=== PATIENT | male | born 1950 | race Caucasian/White ===

== ENCOUNTER 2018-10-29 09:34 | Inpatient (IN) | payer MEDICARE, OTHER ==
[~2018-10-29] VITALS: Ht 165.1 cm; Wt 115.7 kg
[~2018-10-29 09:34] MED LIST: ASPIR 8181 MG PO; ERTAPENEM1 GM IV; GLIPIZIDE 10 MG10 MG PO; HYDROCHLOROTHIA25 M2 PO; LANTUS SUBQ; METFORMIN HCL500 MG PO; NOVOLOG100 UNIT/1 SUBQ; PRINIVIL20 MG PO; ZOCOR20 MG PO; [UNRECOGNIZED DRUG - OTHER] TOP
[2018-10-29 14:58] LABS: HEMATOCRIT 41.8 % (42.0-52.0); HEMOGLOBIN 14.1 gm/dL (14.0-18.0); MCH 33.1 pg (26.0-34.0); MCHC 33.8 g/dL (28.0-37.0); MPV 9.4 fl. (7.2-11.1); RBC 4.27 mil/uL (4.50-6.00); RDW-CV 13.7 % (10.5-14.5); WBC 8.6 thou/uL (4.0-11.0)
[2018-10-29 15:07] LABS: CALCIUM 9.5 mg/dL (8.5-10.1); CREATININE 1.6 mg/dL (0.6-1.3); POTASSIUM 3.9 mmol/L (3.5-5.1)
[2018-10-29 15:11] LABS: ALBUMIN 3.4 g/dL (3.4-5.0); TOTAL BILIRUBIN 0.5 mg/dL (<0.1-1.0); TOTAL PROTEIN 8.1 g/dL (6.4-8.2)
[2018-10-29 15:15] VITALS: BP 129/99
--- NOTE | 2018-10-29 19:04 | NUR ---
PT ARIVED ON UNIT AROUND 1730. A&Ox4. VITALS STABLE. OX 95% ON 1L O2. PICC IN RIGHT UPPER ARM PATENT. NON WEIGHT BEARING ON LEFT LOWER LEG. REGULAR DIET TOLERATED WELL. FALL PRECAUTIONS IN PLACE. CALL LIGHT WITHIN REACH.
[2018-10-29 20:00] VITALS: BP 153/84
--- NOTE | 2018-10-30 07:24 | NUR ---
THIS NURSE ASSUMED CARE OF PT 10/29/18 AT 1930, PT IS ALERT AND ORIENTED X 4, COMPLAINS OF LLE PAIN, RATES IT 4/10, PT IS MEDICATED WITH PO PAIN MEDS THROUGHTOUT THE NIGHT, PT ON 2L SUPPLEMENTAL O2 AND CAP NO THROUGHOUT THE NIGHT MAINTAINS O2 SAT HIGH 90S, AT [address] DACOSTA THAT PTS LLE IS BLEEDING, THIS NURSE REPORTS TO DR CEE THAT THE PATIENT HAS ABOUT 500 ML POOL OF BLOODY DRAINAGE AFTER DOING A STAND AND PIVOT AND BEING PLACED ON THE BSC, PTS DRESSING HAD BEEN REINFORCED AND COMPRESSION DRESSING ADDED AND EXTREMITY ELEVATED DR DACOSTA ORDER ICE TO BE PLACED WELL AND FOR PT TO REMAIN IN THE BED FOR THE REMAINDER OF THIS SHIFT, PTS DRESSSING OBSERVED LATER IN THE SHIFT WITH MINIMAL NEW DRAINAGE NOTED, PT ON BEDPAN THIS MORNING HAS MOD SIZED SOFT STOOL, FALL PRECAUTIONS MAINTAINED
[2018-10-30 08:00] VITALS: BP 150/87
[2018-10-30 08:38] LABS: HEMATOCRIT 39.5 % (42.0-52.0); HEMOGLOBIN 13.3 gm/dL (14.0-18.0); MCH 33.4 pg (26.0-34.0); MCHC 33.8 g/dL (28.0-37.0); MCV 98.7 fL (80.0-100.0); MPV 10.8 fl. (7.2-11.1); NUCLEATED RBCS 0 /100WBC; PLATELET COUNT* 126 thou/uL (150-400); RDW-CV 13.7 % (10.5-14.5); WBC 10.5 thou/uL (4.0-11.0)
[2018-10-30 08:59] LABS: CALCIUM 9.4 mg/dL (8.5-10.1); CREATININE 1.4 mg/dL (0.6-1.3); POTASSIUM 4.3 mmol/L (3.5-5.1)
[2018-10-30 10:06] LABS: ABSOLUTE LYMPHOCYTES 1.6 thou/uL (0.8-5.3); ABSOLUTE MONOCYTES 0.3 thou/uL (0.0-1.2); ABSOLUTE NEUTROPHILS 8.6 thou/uL (1.6-8.1)
[2018-10-30 10:07] LABS: PLATELET ESTIMATE DECREASED
--- NOTE | 2018-10-30 10:52 | EKG ---
[place] [address] ELECTROCARDIOGRAM REPORT Name: RICO JOSHUA Room: [address] ADM IN R.#: [id number] Admission: 10/29/18 Attend Phys: Bee Beavers MD Discharge: Date of : 50 Report #: [id number] THIS REPORT FOR: //name// [facility] Test Date: 2018-10-29 Test Time: 14:48:04 Pat Name: RICO JOSHUA Department: Room: [facility] Gender: M Corporate Learning Consultant: : 1950 Requested By: Kody Worthington Order Number: [id number] Reading MD: Chris Ladd Measurements Intervals [place] Rate: 95 P: 50 OK: 145 QRS: -10 QRSD: 90 T: 123 QT: 332 QTc: 418 Interpretive Statements Sinus rhythm Left atrial enlargement Abnormal T, consider ischemia, lateral leads No previous ECG available for comparison Electronically Signed On 10-30-2018 10:52:10 NURSE EMERGENCY by Chris Ladd [email or web address] <ELECTRONICALLY SIGNED> By: Chris Ladd MD, [facility] 10/30/18 1052 1448 1448 Chris Ladd MD, FACC /EPI
--- NOTE | 2018-10-30 14:36 | NUR ---
WOUND CARE NOTE: WAS ASKED TO REDRESS PATIENT'S INCISION/ULCERATION PER PODIATRY. PATIENT IS S/P AMPUTATION OF LEFT 5TH TOE. INCISION LINE WELL APPROXIMATED WITH SUTURES IN PLACE. ON THE PLANTAR SURFACE THERE IS AN ULCERATION APPROXIMATELY 0.5X0.5 THAT IS FAIRLY DEEP. REMOVED PACKING AND DARK SANGUINEOUS DRAINAGE EMERGED. THIS CONTINUED TO OOZE THROUGHOUT MY ASSESSMENT. CLEANSED INCISION LINE AND ULCERATION WITH WOUND CLEANSER, PATTED DRY. APPLIED AQUACEL AG TO INCISION LINE. PACKED ULCERATION WITH AQUACEL AG AND COVERED ALL WITH ABD. SECURED WITH KERLIX THAN ADELSO WRAP. PATIENT TOLERATED DRESSING CHANGE WELL. PATIENT STATES HE HAS A KNEE WALKER. EDUCATED PATIENT ON GOOD NUTRTION FOR WOUND HEALING, COMMUNICATED UNDERSTANDING. PATIENT STATES HE HAS LOST WEIGHT AND BEEN ABLE TO GET HIS A1C DOWN TO JUST OVER 5. RECOMMEND NON-WEIGHT BEARING TO LEFT FOOT ENCOURAGE GOOD NUTRTION/HYDRATION TIGHT BLOOD GLUCOSE CONTROL
--- NOTE | 2018-10-30 15:30 | CON ---
[address] [address] CONSULTATION Name: RICO JOSHUA Room: [address] IN M.R.#: [id number] Admission: 10/29/18 Attend Phys: Bee Beavers MD Discharge: Date of : 50 Report #: [id number] THIS REPORT FOR: //name// CC: Kody Beavers Physician staff LUBNA LEAL DATE OF SERVICE: 10/30/2018 ATTENDING PHYSICIAN: Dr. Beavers. REASON FOR EVALUATION: Osteomyelitis involving the left fifth metatarsal. HISTORY OF PRESENT ILLNESS: Chart reviewed, patient examined. This is a 68-year-old gentleman with diabetes mellitus type 2 diagnosed roughly 10 years ago. Does have a complication of peripheral neuropathy, who developed a bullous type lesion as a result of shearing left lower extremity. This eventually denuded some months ago and developed ulcers. He has been followed various times, has had cultures initially with VRE. He has been on broad-spectrum antimicrobials including parenteral therapy initially with ampicillin now more recently for the last 4 weeks with ertapenem. Serial imaging initially suggested noninvolvement of any bone more recently; however, MRI raised a question of osteomyelitis involving the fifth metatarsal due to lack of response to the wound care and parenteral therapy. Was subsequently admitted and underwent resection of the left distal fifth metatarsal and fifth toe skin flap. There were 2 cultures, one of the tissue of the bone that are pending. Empirically continued on meropenem. He is not overtly toxic. Denies any significant pulmonary or gastrointestinal related complaints. He notes his hemoglobin A1c is much improved in 5-6 range. Denies anorexia. Weight is actually down purposefully. He is not encephalopathic. ALLERGIES: TO TANZEUM AND BYDUREON. CURRENT MEDICATIONS: Include aspirin, atorvastatin, insulin, lisinopril, glipizide, pantoprazole, meropenem, hydrochlorothiazide, metformin, hydrocodone, p.r.n. analgesics. PAST MEDICAL HISTORY: Diabetes mellitus type 2, complicated by some peripheral neuropathy; history of hypertension; hyperlipidemia; fatty liver; previous vasectomy. SOCIAL HISTORY: Nonsmoker, no ethanol, no illicit drug use. FAMILY HISTORY: [place] [address] CONSULTATION Name: RICO JOSHUA Room: [address] IN [facility]#: [id number] Admission: 10/29/18 Attend Phys: Bee Beavers MD Discharge: Date of : 50 Report #: [id number] REVIEW OF SYSTEMS: Review of 10-point review of systems is otherwise unremarkable with the exception of the above noted in the history of present illness. PHYSICAL EXAMINATION: GENERAL: He is alert, cooperative, appropriate. He is lucid in mild distress. VITAL SIGNS: Temperature 97.9, pulse 81, respirations 16, blood pressure 150/87. SKIN: Warm, dry. No rashes. HEENT: Otherwise, unremarkable. Extraocular muscles intact. Oropharynx without lesion. NECK: Supple. LUNGS: Clear to auscultation. HEART: Regular. I do not appreciate any murmur. ABDOMEN: Soft, nontender. EXTREMITIES: Distal left lower extremity has operative dressing in place. GENITOURINARY: Deferred. RECTAL: Deferred. LABORATORY DATA: CBC: White count of 10.5, H and H 13.3 and 39.5, platelets of 126. Electrolytes: Sodium 137, potassium 4.3, chloride 102, bicarbonate is 26, BUN and creatinine 26 and 1.4. Estimated GFR of 50 in view of operative report. Liver functions otherwise unremarkable. Albumin of 3.4. Total protein is 8.1. ASSESSMENT AND PLAN: Suspected osteomyelitis involving the left distal fifth metatarsal, status post resection. We will continue treatment with the carbapenem, which he had been on previously. We will await those culture results as well as the pathology. He does have a PICC line in place. As he is deemed stable, he may transition to rehab facility. It is apparent that he lives by himself and made difficult especially setting of offloading the foot to allow healing and optimize nutritional status, blood sugar control. <ELECTRONICALLY SIGNED> By: Gera Laws MD 10/30/18 1530 1349 1500Jomarisabel Laws MD /nt
--- NOTE | 2018-10-30 15:45 | NUR ---
SPOKE WITH PT. HE WAS ALERT AND ORIENTED. STATED HE HAS BEEN DOING IV ANTIBIOTICS AT HOME THROUGH [facility] AND HE IS FACING A $17,000 BILL. HE SAID THE DISCUSSED GOING TO A [facility] POST HOSPITAL STAY FOR IVAB AND DRESSING CHANGES TO HIS FOOT. 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 THE MAN, AND BABY LIVE IN THE UPSTAIRS. HE SAID IT IS A HARDSHIP ON HIM TO HAVE TO GO UPSTAIRS FOR MEALS,ETC. GAVE HIM A LIST OF SNFS. HE WOULD LIKE ONE NEAR [facility]. CM WILL CHECK BACK WITH HIM IN AM TO SEE WHICH ONES HE WOULD LIKE REFERRALS MADE TO.
[2018-10-30 16:24] VITALS: BP 139/73
--- NOTE | 2018-10-30 17:31 | NUR ---
PT RESTING IN BED THROUGHOUT SHIFT. REMAINS NWB TO LLE. PT ASSISTED TO BSC. TOLERATING PO WELL. PAIN WELL CONTROLLED WITH PO MEDS.PT ASSISTED WITH REPOSITIONING FREQUENTLY
[2018-10-30 20:00] VITALS: BP 134/87
[2018-10-31 04:32] LABS: ABSOLUTE BASOPHILS 0.1 thou/uL (0.0-0.2); ABSOLUTE EOSINOPHILS 0.2 thou/uL (0.0-0.7); ABSOLUTE LYMPHOCYTES 2.1 thou/uL (0.8-5.3); ABSOLUTE MONOCYTES 0.7 thou/uL (0.0-1.2); ABSOLUTE NEUTROPHILS 5.8 thou/uL (1.6-8.1); BASOPHILS 0.8 %; EOSINOPHILS 2.5 %; HEMATOCRIT 37.7 % (42.0-52.0); HEMOGLOBIN 12.7 gm/dL (14.0-18.0); LYMPHOCYTES 23.6 %; MCH 32.8 pg (26.0-34.0); MCHC 33.7 g/dL (28.0-37.0); MCV 97.4 fL (80.0-100.0); MONOCYTES 7.8 %; MPV 9.8 fl. (7.2-11.1); NUCLEATED RBCS 0 /100WBC; PLATELET COUNT* 125 thou/uL (150-400); POLYS 65.3 %; RBC 3.87 mil/uL (4.50-6.00); RDW-CV 13.5 % (10.5-14.5); WBC 8.9 thou/uL (4.0-11.0)
[2018-10-31 04:42] LABS: CALCIUM 9.1 mg/dL (8.5-10.1); CREATININE 1.4 mg/dL (0.6-1.3); POTASSIUM 3.7 mmol/L (3.5-5.1)
--- NOTE | 2018-10-31 04:50 | NUR ---
ASSUMED PATIENT CARE AT 1900. PATIENT ALERT AND ORIENTED TIMES FOUR. MINOR COMPLAINTS OF PAIN. NOTED BLOODY DRAINAGE TO ENTIRE WRAP. DRESSING CHANGED AND NOTED TO BE C/D/I THIS AM. PICC LINE PATENT TO FLUIDS AND BLOOD DRAWS. PATIENT CONCERNED ABOUT HAVING THE PROPER PLACEMENT AT DISCHARGE AND SPENT TIME REVIEWING THE LIST OF SNF'S PROVIDED BY CASE MANAGEMENT. FALL RISK PRECAUTIONS IN PLACE. SHOPPING INVESTIGATOR AND HOURLY ROUNDING COMPLETED DOCUMENTED.
[2018-10-31 08:00] VITALS: BP 113/63
[2018-10-31 08:40] VITALS: BP 134/71
[2018-10-31 15:23] VITALS: BP 113/63
--- NOTE | 2018-10-31 15:50 | NUR ---
DISCUSSED DISCHARGE PLANNING WITH PT. HE WOULD,IF POSSIBLE,LIKE TO GO TO AN INPT.ACUTE REHAB UNIT. HE SAID IF HE COULD GO TO [facility] OR [facility] RE[facility] UNTI IT WOULD BE GREAT, , COULD STILL FOLLOW HIS FOOT WOUND. HE SAID HE HAS BEEN DEALING WITH THIS WOUND FOR A YEAR AND 1/2 AND WANTS IT TO HEAL. CONTACTED YVONNE/REHAB LIAIAN EARLIER. SHE SAID SHE COULD NOT REALLY TELL IF PT.QUALIFIED OR NOT PT/OT HAS NOT SEEN HIM YET. DISCUSSED WITH PT. THAT SHE WOULD LOOK AT HIM AGAIN ON SATURDAY. DISCUSSED PLAN B. HE WOULD CONSIDER [facility] RE[facility] OR [facility] IN [place]. (LIVES IN [place]) CM WILL SEE SATURDAY. STILL AWAITING CULTURES, WELL.
--- NOTE | 2018-10-31 16:28 | NUR ---
PT REMAINED ALERT AND ORIENTED THIS SHIFT. PT C/O PAIN, HYDROCODONE GIVEN ORDERED. PT HAS DRESSING AROUND FOOT CHANGED TODAY BY DR. DACOSTA. PT IS NWB TO LT LEG. BLOOD SUGARS HAVE BEEN HIGH, INSULIN GIVEN ORDERED. PT TRANSFERRED TO CHAIR TODAY WITH PIVOTING AND GAIT BELT. FALL RISK PRECAUTIONS IN PLACE. HOURLY ROUNDING COMPLETED. WILL CONTINUE TO MONITOR.
--- NOTE | 2018-10-31 18:10 | NUR ---
REPORT FROM RN ON JOINT SPINE OBTAINED, WILL ATTEMPT TO TRY AND GET PT TO ROOM PRIOR TO SHIFT CHANGE. WILL SETTLE PT WHEN HE ARRIVES
--- NOTE | 2018-10-31 18:27 | NUR ---
PT WILL BE TRANSFERRING TO [facility]. REPORT WAS CALLED TO NURSE. AWAITING STAFF TO CHECKER IN PT FOR TRANSFER VIA BED. HOURLY ROUNDING COMPLETED. FALL RISK PRECAUTIONS IN PLACE. WILL CONTINUE TO MONITOR.
[2018-10-31 20:00] VITALS: BP 125/74
[2018-11-01 05:02] LABS: ABSOLUTE BASOPHILS 0.1 thou/uL (0.0-0.2); ABSOLUTE EOSINOPHILS 0.3 thou/uL (0.0-0.7); ABSOLUTE LYMPHOCYTES 2.8 thou/uL (0.8-5.3); ABSOLUTE MONOCYTES 0.7 thou/uL (0.0-1.2); ABSOLUTE NEUTROPHILS 4.9 thou/uL (1.6-8.1); BASOPHILS 0.9 %; EOSINOPHILS 3.8 %; HEMATOCRIT 39.6 % (42.0-52.0); HEMOGLOBIN 13.4 gm/dL (14.0-18.0); LYMPHOCYTES 31.5 %; MCH 33.2 pg (26.0-34.0); MCV 97.8 fL (80.0-100.0); MONOCYTES 7.5 %; MPV 10.5 fl. (7.2-11.1); NUCLEATED RBCS 0 /100WBC; PLATELET COUNT* 143 thou/uL (150-400); POLYS 56.3 %; RBC 4.04 mil/uL (4.50-6.00); RDW-CV 13.7 % (10.5-14.5); WBC 8.8 thou/uL (4.0-11.0)
[2018-11-01 05:50] LABS: CALCIUM 9.2 mg/dL (8.5-10.1); CREATININE 1.5 mg/dL (0.6-1.3); POTASSIUM 4.1 mmol/L (3.5-5.1)
--- NOTE | 2018-11-01 06:21 | NUR ---
ASSUMED PATIENT CARE AT 1900. PATIENT ALERT AND ORIENTED TIMES FOUR. DRESSING TO LEFT FOOT IS C/D/I. PIC GARCIA PATENT TO IV FLUIDS AND BLOOD DRAWS. MINOR COMPLAINTS OF PAIN, CONTROLLED WITH ORAL MEDICATION. PATIENT STATES "THE PAIN IS GETTING BETTER" VERBALIZED UNDERSTANDING OF POC. FALL RISK PRECAUTIONS IN PLACE. BRIQUETTE OPERATOR AND HOURLY ROUNDING COMPLETED DOCUMENTED
[2018-11-01 16:07] VITALS: BP 119/73
--- NOTE | 2018-11-01 18:12 | NUR ---
PATIENT GIVEN INSULIN WITH MEALS WHEN REQUIRED. IV ABX INFUSED ORDERED. DR. CHARLTON HERE THIS AM, DRESSING TO LEFT FOOT CHANGED. SURGICAL SHOE ORDERED AND ORDERS FOR LIMITED WEIGHT BEARING WHEN TRANSFERRING SHORT DISTANCES (IE BSC, CHAIR). PT/OT THIS SHIFT. PATIENT UP TO CHAIR THIS AM.
[2018-11-01 21:45] VITALS: BP 120/73
--- NOTE | 2018-11-02 04:30 | NUR ---
PATIENT HAS REMAINED ALERT AND ORIENTED X 4 THROUGHOUT THE SHIFT AND RESTING QUIETLY ON HOURLY ROUNDS. UP TO BSC X 3 THIS SHIFT WITH LARGE RESULTS FROM EARLIER MAG [employer]. DRESSING LEFT FOOT CLEAN AND DRY. MEDICATED FOR PAIN X 1 TO GOOD EFFECT. VITAL SIGNS STABLE. ANTIBIOTICS PER ORDER. CONTINUE TO MONITOR.
[2018-11-02 07:50] VITALS: BP 108/59
--- NOTE | 2018-11-02 16:27 | NUR ---
DR. CHARLTON HERE THIS AM, DRESSING CHANGED AND PHOTO TAKEN PER PROTOCOL. UP TO CHAIR THIS AFTERNOON WITH THERAPY. IV ABX INFUSED ORDERED. NO COMPLAINTS OF PAIN. PATIENT HAVING QUESTIONS CONCERNING DISCHARGE AND WHERE HE WILL GO WHEN HE IS DISCHARGED, WILL DEFER TO CM WHEN AVAIBLE ON SATURDAY.
[2018-11-02 17:02] VITALS: BP 115/65
[2018-11-02 20:20] VITALS: BP 139/78
--- NOTE | 2018-11-03 04:42 | NUR ---
PT A&Ox4. VITALS STABLE. BP 139/78, P 92, TEMP 98.4, RESP 15, OX 92% ON RA. PAIN CONTROLLED. UP WITH ASSIST TO CAMMODE, PARTIAL WB ON LEFT HEAL. ISOLATION PRECAUTIONS IN PLACE FOR VRE. PICC IN R UPPER ARM PATENT, SL. FALL PRECAUTIONS IN PLACE. CALL LIGHT WITHIN REACH. WILL CONTINUE TO MONITOR. HOURLY ROUNDING COMPLETE.
[2018-11-03 06:03] LABS: ABSOLUTE EOSINOPHILS 0.3 thou/uL (0.0-0.7); ABSOLUTE MONOCYTES 0.6 thou/uL (0.0-1.2); ABSOLUTE NEUTROPHILS 4.2 thou/uL (1.6-8.1); BASOPHILS 0.5 %; EOSINOPHILS 3.6 %; HEMATOCRIT 37.7 % (42.0-52.0); HEMOGLOBIN 12.8 gm/dL (14.0-18.0); LYMPHOCYTES 28.7 %; MCHC 33.9 g/dL (28.0-37.0); MCV 97.2 fL (80.0-100.0); MONOCYTES 7.9 %; MPV 10.2 fl. (7.2-11.1); NUCLEATED RBCS 0 /100WBC; PLATELET COUNT* 129 thou/uL (150-400); POLYS 59.3 %; RBC 3.88 mil/uL (4.50-6.00); RDW-CV 13.6 % (10.5-14.5); WBC 7.1 thou/uL (4.0-11.0)
[2018-11-03 06:09] LABS: CALCIUM 9.5 mg/dL (8.5-10.1); CREATININE 1.4 mg/dL (0.6-1.3)
[2018-11-03 08:00] VITALS: BP 103/73
--- NOTE | 2018-11-03 13:56 | NUR ---
Nutrition: Pt assessed for high BMI. Admitted with osteomyelitis s/p resection, DM ulcers on bilat feet. H/o DM II, CKD. Alb 3.4, BG 131. CHO controlled diet. Wt: 255#. RD will order Arginaid protein powder to aid in wound healing. Looks like pt will be going to Rehab. Low risk.
[2018-11-03 16:00] VITALS: BP 111/69
--- NOTE | 2018-11-03 16:11 | NUR ---
SPOKE WITH YVONNE/EVELINA THIS AM ABOUT PT.S POTENTIAL FOR BEING A REHAB PT. SHE REVIEWED WITH PT/OT AND . THEY FELT HE WOULD BE A GOOD REHAB PT.AND CAN ACCEPT PT.TOMORROW. NOTIFIED PT.AND HE WAS VERY PLEASED THAT HE CAN GO TO REHAB UNIT.
--- NOTE | 2018-11-03 16:26 | NUR ---
PATIENT WORKED WITH PT/OT THIS SHIFT. PATIENT REMAINS WEIGHT BEARING SHORT DISTANCES WITH SURGICAL SHOE. IV ABX REMAIN. PATIENT TO TRANSFER TO REHAB WHEN BED AVAILABLE TOMORROW.
--- NOTE | 2018-11-03 17:18 | NUR ---
RECEIVED CONSULT FOR POSSIBLE REHAB ADMISSION. CONSULT HAS BEEN ACKNOWLEDGED BY FILM LABORATORY TECHNICIAN AND DR. RILEY. PATIENT ADMITTED WITH NONHEALING DIABETIC FOOT ULCER WITH OSTEOMYELITIS S/P RESECTION. PARTICIPATING IN THERAPIES ON IV ANTIBIOTICS HAS REHAB AND WOUND CARE NEEDS. PATIENT AGREEABLE TO ACUTE REHAB. WILL PLAN TO ACCEPT PATIENT TO REHAB ONCE MEDICALLY STABLE. INFORMED DESIRE CHERRY OF PATIENTS ACCEPTANCE TO REHAB. THANK YOU FOR THIS CONSULT.
[2018-11-03 20:40] VITALS: BP 123/70
--- NOTE | 2018-11-04 05:21 | NUR ---
PT SLEPT MOST OF SHIFT. ASSESSMENT DOCUMENTED. MEDS GIVEN PER E-JAN. PICC PATENT. TYLENOL GIVEN FOR PAIN WITH RELIEF. DRESSING TO LEFT FOOT REMAINED C/D/I. SURGICAL SHOE WORN WHEN OUT OF BED. PT TRANSFERED TO BATHROOM WITH GAITBELT AND WALKER THIS SHIFT. WILL CONTINUE WITH PLAN OF CARE.
[2018-11-04 07:45] VITALS: BP 108/65
[2018-11-04 12:34] VITALS: BP 108/65
[2018-11-04] MEDS ORDERED: NORCO 5-325 TA1 EACH PO (12:34)
--- NOTE | 2018-11-04 16:07 | PATH ---
[address] [address] PATHOLOGY RPT PROCEDURE Name: ERLIN CUNNINGHAM Room: [address] ADM IN M.R.#: [id number] Admission: 10/29/18 Date of : 50 Discharge: Report #: [id number] Path Case #: [id number] [facility] Accession Number: [id number] . 01 Material submitted: . LEFT 5TH TOE AND 5TH METATARSAL . 01 Clinical history: . Osteomyelitis . 02 Diagnosis: Left fifth toe and fifth metatarsal: - Segment of benign toe including phalangeal bones and separate segment of distal metatarsal with missing bone (defect) in articular head, without osteomyelitis identified. See comment. (JULIETA:delia; 10/31/2018) QMS/10/31/2018 . 02 Comment: Soft tissues show, at most, minimal chronic inflammation and although osteomyelitis is not seen, it is noted upon review of Dr. Worthington's operative report dated 10/29/2018, that a portion of the metatarsal head which may have contained the diseased bone was submitted for cultures. . 02 Electronically signed: . Dustin Martinez MD, Pathologist NPI- [id number] . 01 Gross description: . Received in formalin labeled "Erlin Cunningham L 5th toe and metatarsal," is a digit amputation specimen measuring 5.3 x 2.4 x 2.2 cm in greatest dimensions. The bone margin is smooth and concave in appearance, consistent with disarticulation. A nail is present in the nailbed that is granular and pale yellow-goel in appearance. The epidermal surface is pale goel and grossly unremarkable in appearance. The bone and soft tissue margins are inked black. Sectioning reveals cancellous, pale pink-yellow bone. A full-thickness cross-section is submitted proximal to distal in cassettes A1 and A2, following decalcification. . Also received within the specimen container is a segment of bone with scant attached pale yellow-goel soft tissue measuring 4.2 x 1.7 x 1.7 cm in greatest dimensions. One bone margin is largely smooth and convex in appearance, consistent with disarticulation. An area of jagged, pale yellow bone is exposed at this margin (inked black). The opposite bone margin is flat in appearance, consistent with transection (inked red). A full-thickness cross-section is submitted in cassettes A3 and A4, which includes the black inked jagged region, following decalcification, [place] [address] PATHOLOGY RPT PROCEDURE Name: ERLIN CUNNINGHAM Room: [address] IN .R.#: [id number] Admission: 10/29/18 Date of : 50 Discharge: Report #: [id number] Path Case #: [id number] (DAC; 10/30/2018) XDC/XDC . 02 Pathologist provided ICD-10: M79.9 . 02 CPT . 327616, 140853 Specimen Comment: A courtesy copy of this report has been sent to Specimen Comment: [phone], . Specimen Comment: Report sent to / DR CORTEZ Specimen Comment: A duplicate report has been generated due to demographic updates. Performed at: [address] [facility] [address], [place], [place] [id number] MD Genaro Mckay MD Phone: [phone] Performed at: 02 [facility] [address], [place], [place] [id number] MD Dustin Martinez MD Phone: [phone]
[2018-11-04 16:50] VITALS: BP 108/62
--- NOTE | 2018-11-04 18:26 | NUR ---
PATIENT A&OX4, ROOM AIR, IV RIGHT UPPER PICC SINGLE LUMEN, DRESSING CHANGED TODAY. UP WITH ASSISTX1 WITH WALKER AND GAITBELT. PARTIAL WEIGHT BEARING TO LEFT FOOT, ONLY HEEL PRESSURE FOR TRANSFERS. C/O PAIN, RELIEF WITH MEDICATION. DISCHARGE PHOTO TAKEN AND DRESSING TO LEFT FOOT CHANGED. PATIENT TO TRANSFER TO OUR REHAB UNIT AT SHIFT CHANGE, REPORT WILL BE GIVEN TO ONCOMING NURSE. NO OTHER CONCERNS AT THIS TIME. APPROPRIATE AND COOPORATIVE WITH CARE.
--- NOTE | 2018-11-05 13:02 | CON ---
[address] [address] CONSULTATION Name: RICO JOSHUA Room: [address] IN M.R.#: [id number] Admission: 10/29/18 Attend Phys: Bee Beavers MD Discharge: 11/04/18 Date of : 50 Report #: [id number] THIS REPORT FOR: //name// CC: Kody Beavers Physician staff LUBNA ELVIS DATE OF SERVICE: 11/02/2018 CHIEF COMPLAINT: Status post partial left fifth ray resection for deep tissue infection. HISTORY OF PRESENT ILLNESS: Surgical pathology was negative for osteomyelitis. Surgical bone and tissue cultures were negative for growth. He is on parenteral meropenem with good tolerance. He relates the pain at a 4/10, which has improved since yesterday. He has good appetite, denies fever, chills or malaise. He is partial weightbearing with a walker during physical therapy. He would like to be discharged to a penitentiary facility or similar, if possible. LABORATORY DATA: There are no new labs for review. PHYSICAL EXAMINATION: Incisions are well coapted, minimal inflammation and edema, improved since yesterday. No dehiscence, pallor or cyanosis. No active bleeding. No underlying fluctuance or crepitation. Small plantar ulcer right where the fifth MTP was that I have been packing with Aquacel Ag. It measures roughly 0.5 x 0.5 x 0.5 cm. IMPRESSION: Status post left partial fifth ray resection with deep tissue infection. PLAN: The wound was cleansed and repacked with Aquacel Ag, and then the incision covered with Aquacel Ag, ABD, Kerlix and Mirza. The patient to continue current partial weightbearing with a walker during physical therapy. I discussed in the presence of Dr. Harvinder Laws today. We will follow the patient during his hospitalization. <ELECTRONICALLY SIGNED> By: Kody Worthington DPM 11/05/18 1302 [id number] [id number] Worthington DPM /nt
--- NOTE | 2018-11-05 13:02 | CON ---
[address] [address] CONSULTATION Name: RICO JOSHUA Room: [address] IN M.R.#: [id number] Admission: 10/29/18 Attend Phys: Bee Beavers MD Discharge: 11/04/18 Date of : 50 Report #: [id number] THIS REPORT FOR: //name// CC: Kody Beavers Physician staff LUBNA ELVIS DATE OF SERVICE: 11/01/2018 Postoperative day #3 for left partial fifth ray resection for osteomyelitis. He is resting comfortably, relates decreased pain. He has some decreased appetite, possibly from the parenteral antibiotics. Surgical cultures are pending with no growth. He is on parenteral meropenem with good tolerance. He has remained nonweightbearing, denies any bleeding through the bandage. Denies fevers, chills or malaise. Surgical pathology did not reveal osteomyelitis. LABORATORY DATA: WBC 8.8, RBC 4.04, hemoglobin 13.4, hematocrit 39.6, platelets 143, BUN 27, creatinine 1.5, glucose 77. PHYSICAL EXAMINATION: Incisions are well approximated, decreased inflammation. No dehiscence, drainage, or signs of acute vascular embarrassment. No underlying fluctuance or crepitation. PLAN: Incision was cleansed and dried. The wound was packed with Aquacel Ag and the foot was dressed with ABD, Kerlix and Mirza. The patient may be partial weightbearing today in a surgical shoe during OT/PT for short distances and transfers using an assistive device. I will follow up with the patient tomorrow. <ELECTRONICALLY SIGNED> By: Kody Worthington DPM 11/05/18 1302 [id number] Worthington DPM /nt
--- NOTE | 2018-11-05 13:02 | OP ---
[address] [address] OPERATIVE REPORT Name: RICO JOSHUA Room: [address] IN M.R.#: [id number] Admission: 10/29/18 Attend Phys: Bee Beavers MD Discharge: 11/04/18 Date of : 50 Report #: [id number] THIS REPORT FOR: //name// CC: Kody Beavers Physician staff LUBNA LEAL DATE OF SERVICE: 10/29/2018 SURGEON: Kody Worthington DPM. PREOPERATIVE DIAGNOSIS: Osteomyelitis with septic arthritis to left fifth metatarsophalangeal joint. POSTOPERATIVE DIAGNOSIS: Osteomyelitis with septic arthritis to left fifth metatarsophalangeal joint. PROCEDURE: 1. Resection, left distal fifth metatarsal and fifth toe. 2. Skin flap, left foot to the pedicled skin flap, left foot. 3. Incision and drainage, left foot. ANESTHESIA: General LMA. INJECTABLES: 30 mL of a 1:1 mixture of 0.5% Marcaine plain and 1% lidocaine plain. HEMOSTASIS: Left ankle pneumatic tourniquet at 275 mmHg. ESTIMATED BLOOD LOSS: Roughly 2 mL. SUTURES: 3-0 nylon. SPECIMENS: Left distal fifth metatarsal and fifth toe. CULTURES: Left distal fifth metatarsal, aerobic and anaerobic. Soft tissue, left foot, aerobic and anaerobic. COMPLICATIONS: None. DESCRIPTION OF PROCEDURE: The patient was brought to the OR and placed on the table supine with induction of general LMA anesthesia. A well-padded left ankle pneumatic tourniquet was placed. A local anesthetic block was given and extremity was prepped and draped aseptically. After exsanguination, the tourniquet was inflated and a #15 blade was used to create a dorsal lateral [place] [id number] OPERATIVE REPORT Name: RICO JOSHUA Room: [address] IN [facility].#: [id number] Admission: 10/29/18 Attend Phys: Bee Beavers MD Discharge: 11/04/18 Date of : 50 Report #: [id number] incision along the distal fifth metatarsal and circumferentially around the fifth toe. Layered anatomic dissection used to disarticulate the fifth toe at the fifth MTP joint. Electrocautery was used for intraoperative hemostasis. There was some discoloration. There was a small abscess overlying the dorsal lateral fifth MTP with roughly 1 mL of purulence. The joint at the fifth metatarsal head had some yellowish discoloration and the bone was soft. I transected the fifth metatarsal at the mid-diaphyseal region and submitted it to Pathology. A portion of the fifth metatarsal head was sent for bone culture. Surrounding soft tissue was also sent for culture. The plantar capsule and tendons were debrided and removed from the surgical site. Redundant skin was removed and a plantar lateral skin flap was mobilized for closure. The wound was flushed with sterile saline with 50,000 units of bacitracin irrigant and dried. The plantar lateral skin flap was mobilized dorsally and sutured with 3-0 nylon in simple interrupted fashion. The entire incision was sutured and the existing plantar wound was debrided and packed with Aquacel Ag. The incision covered with Aquacel Ag, ABDs, Kerlix, and Mirza bandage. The tourniquet was deflated with normal vascular return. The patient left the OR with no complications noted. <ELECTRONICALLY SIGNED> By: Kody Worthington DPM 11/05/18 1302 1657 [id number] Worthington DPM /jeff
--- NOTE | 2018-11-05 13:02 | CON ---
[address] [address] CONSULTATION Name: JOSIANERICO Lucinda Room: [address] IN M.R.#: [id number] Admission: 10/29/18 Attend Phys: Bee Beavers MD Discharge: 11/04/18 Date of : 50 Report #: [id number] THIS REPORT FOR: //name// CC: Kody Beavers Physician staff LUBNA ELVIS DATE OF SERVICE: 10/29/2018 CHIEF COMPLAINT: Status post left partial fifth ray resection for osteomyelitis. HISTORY OF PRESENT ILLNESS: He is resting comfortably, afebrile with pain controlled with hydrocodone. Surgical culture is pending. He is on parenteral meropenem with good tolerance. His appetite is stable. He had some bleeding last night after surgery when using the commode, but he has been nonambulatory with minimal bleeding today. LABORATORY DATA: WBC 10.5, RBC 4.00, hemoglobin 13.3, hematocrit 39.5, platelets 126. BUN 26, creatinine 1.4, glucose 196. PHYSICAL EXAMINATION: Incision is well approximated with good color, no dehiscence, pallor or cyanosis. No active bleeding. Foot is warm with no signs of acute vascular embarrassment. Negative Homans and Gonzalez sign bilaterally. IMPRESSION: Status post left partial fifth ray resection for osteomyelitis, type 2 diabetes mellitus with peripheral neuropathy. PLAN: The incision was cleansed and dried. It was dressed with Aquacel Ag, ABDs, Kerlix, and Mirza. The patient to remain nonweightbearing to the extremity, likely long term facility placement upon discharge. <ELECTRONICALLY SIGNED> By: Kody Worthington DPM 11/05/18 1302 194 Droyer Worthington DPM /nt
--- NOTE | 2018-11-05 13:02 | CON ---
[address] [address] CONSULTATION Name: RICO JOSHUA Room: [address] IN M.R.#: [id number] Admission: 10/29/18 Attend Phys: Bee Beavers MD Discharge: 11/04/18 Date of : 50 Report #: [id number] THIS REPORT FOR: //name// CC: Kody Beavers Physician staff LUBNA LEAL DATE OF SERVICE: 10/31/2018 HISTORY OF PRESENT ILLNESS: Postoperative day 2 for resection of left distal fifth metatarsal for osteomyelitis. He is on parenteral meropenem. Surgical cultures are pending, with no growth thus far. He is afebrile, with good appetite and minimal pain. He remains nonweightbearing to the extremity. Awaiting, he will likely be discharged to a jail facility upon discharge. LABORATORY DATA: WBC 8.9, RBC 3.87, hemoglobin 12.7, hematocrit 37.7 and platelets 125,000. BUN 25, creatinine 1.4 and glucose 94. PHYSICAL EXAMINATION: The incision is well coapted with mild inflammation and edema. No active bleeding noted. No pallor, cyanosis or signs of vascular embarrassment to the feliciano-incision. No underlying fluctuance or crepitation. Negative Homans and Gonzalez sign to both extremities. IMPRESSION: Osteomyelitis, status post left partial fifth ray resection, complicated by type 2 diabetes mellitus. PLAN: Excisional ulcer debridement to the plantar wound with scissors and forceps to remove subcutaneous tissue from the wound margin and some callus. Bleeding was stopped with pressure. The wound was cleansed and redressed with ABDs, Kerlix and Mirza wrap. Remain nonweightbearing. I will follow the patient tomorrow. <ELECTRONICALLY SIGNED> By: Kody Worthington DPM 11/05/18 1302 1603 [id number] Worthington DPM /nt
== END 2018-11-04 19:03 | DRG 623 ==
LOC: M.PRE 09:34 → M.ORTHSURG 14:17 → M.TBA 14:17 → M.ORTHSURG 17:40 → M.3W 10-31 18:57
PROVIDERS: Internal Medicine; Podiatrist Foot & Ankle Surgery; ADMIT Internal Medicine
PROC: 0QTP0ZZ Resection of Left Metatarsal, Open Approach (ICD-10-PCS; principal; 2018-10-29)
PROC: 05HY33Z Insertion of Infusion Device into Upper Vein, Percutaneous Approach (ICD-10-PCS; principal; 2018-10-29)
PROC: 0HXNXZZ Transfer Left Foot Skin, External Approach (ICD-10-PCS; principal; 2018-10-29)
PROC: 0LBW0ZZ Excision of Left Foot Tendon, Open Approach (ICD-10-PCS; principal; 2018-10-29)
DX: E11.621 Type 2 diabetes mellitus with foot ulcer (principal); M00.9 Pyogenic arthritis, unspecified; M86.8X7 Other osteomyelitis, ankle and foot; I38 Endocarditis, valve unspecified; Z68.41 Body mass index [BMI] 40.0-44.9, adult; E11.69 Type 2 diabetes mellitus with other specified complication; N17.9 Acute kidney failure, unspecified; I12.9 Hypertensive chronic kidney disease with stage 1 through stage 4 chronic kidney disease, or unspecified chronic kidney disease; E11.319 Type 2 diabetes mellitus with unspecified diabetic retinopathy without macular edema; E88.81 Metabolic syndrome and other insulin resistance; E11.42 Type 2 diabetes mellitus with diabetic polyneuropathy; E66.9 Obesity, unspecified; E78.5 Hyperlipidemia, unspecified; D69.6 Thrombocytopenia, unspecified; N18.9 Chronic kidney disease, unspecified; E11.22 Type 2 diabetes mellitus with diabetic chronic kidney disease; Z79.4 Long term (current) use of insulin; Z88.8 Allergy status to other drugs, medicaments and biological substances; Z79.82 Long term (current) use of aspirin; Z79.2 Long term (current) use of antibiotics; Z79.899 Other long term (current) drug therapy; Z98.52 Vasectomy status

== ENCOUNTER 2018-11-04 16:17 | Inpatient (IN) | payer MEDICARE, OTHER ==
[~2018-11-04] VITALS: Ht 177.8 cm; Wt 115.0 kg
--- NOTE | ~2018-11-04 | H ---
[address] [address] HISTORY AND PHYSICAL Name: RICO JOSHUA Room: [address] IN M.R.#: [id number] Admission: 11/04/18 Attend Phys: Ashley Lemos DO Discharge: Date of : 50 Report #: [id number] THIS REPORT FOR: //name// CC: Ashley Lemos Physician staff DATE OF SERVICE: 11/04/2018 [facility] of 16. HISTORY OF PRESENT ILLNESS: This is a 68-year-old male admitted to inpatient rehabilitation to facilitate safe discharge home, status post acute hospitalization beginning on 10/29/2018 for osteomyelitis of the left foot, status post resection, followed by Dr. Worthington as well as Internal Medicine, resection of left distal fifth metatarsal, fifth toe. He does have a diabetic foot wound, culture showing VRE and had been on broad-spectrum IV antibiotics prior to surgery and maintained on IV antibiotics at this time, debilitated, alterations in activities of daily living. Previous level of function was independent to modified independent with activities of daily living. Current level of function is minimum to moderate assistance of 1-2 depending on therapy, activity and time of day. Cognitively, he is within functional limits. He is ambulating 15 feet with front-wheeled walker. He is currently minimum assistance to maximum assistance of 1-2. Estimated length of stay is 12-14 days with discharge disposition to the home setting with supportive family. No changes since the preadmission screening. PAST MEDICAL HISTORY: Hypertension, hyperlipidemia, uncontrolled diabetes with a random glucose of 195, insulin-dependent; diabetic retinopathy, herpes simplex type 1, calcification of heart vessels, hydrocele of the left testicle, metabolic syndrome with fatty liver, diabetic left foot ulcer, CKD, osteomyelitis, peripheral neuropathy, septic arthritis. PAST SURGICAL HISTORY: Vasectomy and a left toe amputation. ALLERGIES: LOSARTAN. FAMILY HISTORY: Heart disease. SOCIAL HISTORY: No tobacco, alcohol or illicit drug use. REVIEW OF SYSTEMS: A 14-point review of systems is done and is negative except as mentioned in HPI, specifically no fever, chest pain, shortness of breath, abdominal pain or distention. PHYSICAL EXAMINATION: GENERAL: Alert, oriented, [place] [address] HISTORY AND PHYSICAL Name: JOSIANERICO Lucinda Room: [address] IN [facility]#: [id number] Admission: 11/04/18 Attend Phys: Ashley Lemos DO Discharge: Date of : 50 Report #: [id number] VITAL SIGNS: Reviewed and are stable. HEENT: Head atraumatic, normocephalic. Pupils equal, round, reactive. ABDOMEN: Soft, nontender, nondistended. NEUROLOGIC: Cranial nerves 2-12 are grossly intact with no focal neuro deficits, 5/5 strength in bilateral upper and lower extremities. SKIN: Warm and dry. No rashes or lesions noted. Left foot is tightly wrapped and elevated. ASSESSMENT: 1. Osteomyelitis, status post left fifth metatarsal resection on 10/29/2018. 2. Multiple medical comorbidities as per previously stated with acute debility. PLAN: 1. Admission to inpatient rehabilitation. 2. PT, OT, case management, nursing and HIMS to make evaluations and recommendations. 3. Plan of care is pending. By: 1635 1718Ashley Lemos DO /nt
--- NOTE | ~2018-11-04 | PLAN ---
[address] [address] REHAB UNIT PLAN OF CARE Name: RICO JOSHUA Room: [address] IN M.R.#: [id number] Admission: 11/04/18 Attend Phys: Ashley Lemos DO Discharge: Date of : 50 Report #: [id number] THIS REPORT FOR: //name// CC: Ashley Lemos Physician staff OVERALL PLAN OF CARE This is a 68-year-old male status post diagnosis of osteomyelitis with left foot fifth metatarsal resection on 10/29/2018 with multiple medical comorbidities and alterations in activities of daily living with previous level of function of modified independent to independent with activities of daily living. Current level of function of minimum assistance to maximum assistance of 1-2 depending on therapy, activity and time of day. He does have no cognitive impairment, ambulating with front-wheeled walker 15 feet. MEDICAL PROGNOSIS: Good. REHABILITATION PROGNOSIS: Good. Estimated length of stay is 10-12 days with discharge disposition to the home setting where he has 12 stairs. Physical therapy will see the patient 60-90 minutes per day, 5 days per week, working on upper and lower body strength, balance, coordination, navigation. Occupational therapy will work with the patient 60-90 minutes per day, 5 days per week, working on upper and lower body strength, balance, coordination, navigation, bathing, dressing, and toileting. This is an overall plan of care, may change from time to time. We will team weekly and make changes to plan of care as needed. By: 1637 1757Ashley Lemos DO /nt
[~2018-11-04 16:17] MED LIST changes: +NORCO 5-325 TA1 EACH PO
[2018-11-04 20:00] VITALS: BP 101/63
--- NOTE | 2018-11-04 23:24 | NUR ---
PATIENT ARRIVED FROM ROOM 305 AT 1900. REHAB ADMISSION TOOL COMPLETED AT ABOUT 2030. SINGLE LUMEN UPPER RIGHT ARM PICC LINE INTACT. GOOD BLOOD RETURN. HAD SURGICAL SHOE ON LEFT FOOT WHEN SITTING UP IN CHAIR. 2+ BILATERAL LOWER EXTREMITY NOTED. SNACK PROVIDED.
[2018-11-05 04:57] LABS: HEMATOCRIT 36.4 % (42.0-52.0); HEMOGLOBIN 12.4 gm/dL (14.0-18.0); MCH 33.3 pg (26.0-34.0); MCHC 34.1 g/dL (28.0-37.0); MCV 97.5 fL (80.0-100.0); MPV 10.7 fl. (7.2-11.1); RBC 3.73 mil/uL (4.50-6.00); RDW-CV 13.6 % (10.5-14.5); WBC 6.8 thou/uL (4.0-11.0)
--- NOTE | 2018-11-05 05:18 | NUR ---
HARRISON GARNER. NO FURTHER COMPLAINT OF PAIN SINCE TYLENOL GIVEN AT 2238 PER REQUEST FOR COMPLAINT OF LEFT FOOT PAIN. TURNS SELF IN BED. UP X ONE DURING THE NIGHT TO THE BATHROOM TO VOID. HOURLY ROUNDING IN PROGRESS.
[2018-11-05 05:33] LABS: CALCIUM 9.6 mg/dL (8.5-10.1); CREATININE 1.6 mg/dL (0.6-1.3)
[2018-11-05 08:18] VITALS: BP 114/64
--- NOTE | 2018-11-05 11:53 | NUR ---
Nutrition: Pt admitted to Rehab. DM ulcers on bilat feet. RD will reorder Arginaid. CHO controlled diet. Albumin 3.4. Wt: 265#. H/o DM II, CKD. Will follow weekly.
--- NOTE | 2018-11-05 13:54 | NUR ---
PT WAS HOPPING TO DINNINGROOM NWB STATUE TO LT FOOT WHEN FOOT STARTED BLEEDING LARGE AMOUNT DRIPPING BLOOD.PT RETURNED TO BED WITH FOOT ELEVATED AND PRESSURE PLACED. DRESSING WAS REINFORCED WITH BRYCE,MARION AND COBAN FOR CONTINUED PRESSURE WITH FOOT ELEVATED. PT DENIES INCREASE OF PAIN OR NEED FOR MEDICATION. DR. DACOSTA WAS NOTIFIED AND WILL SEE PT THIS AFTERNOON. IS MADE AWARE WELL. THIS HAPPENED ABOUT NOON AND NO FURTHER BLEEDING HAS OCCURRED.
--- NOTE | 2018-11-05 15:43 | NUR ---
FILIBERTO and Dr Lemos met with pt to review team conference summary and plan for pt to remain on rehab unit and team to reassess pt length of stay during team conference next Saturday. Pt was discouraged by his foot bleeding and Dr Lemos reassured pt of his plan of care and Dr Moore to see pt as well. Pt okay with plan to reteam. SW also completed initial brief assessment. Pt lived in a previous coworker's basement. SW to meet with pt again to clarify pt support system, goals, dc plan. SW to continue to follow to assist with safe dc planning.
[2018-11-05 20:00] VITALS: BP 97/67
[2018-11-05 23:15] VITALS: BP 123/67
--- NOTE | 2018-11-06 01:38 | NUR ---
ASSUMED CARE @ 1942-11/05-SAT.SITS IN RECLINER W/ LE'S UP.DRSG INTACT LEFT FOOT.NWB LEFT LE OBSERVED FOR BRP.ISOLATION OBSERVED.LEFT FOOT UP ON 2 PILLOWS @ 2124-BUT LATER @ 2309-WANTS 2 PILLOWS OFF.PICC LINE HAS GOOD BLOOD RETURN @ 2199 & FLUSHED GOOD.SEE PAIN MANAGEMENT @ 1.BP @ .BP RE-CHECKED @ 2314-.ON HOURLY ROUNDS.CUSTOMER BUSINESS MANAGER DOING ODD HOUR ROUNDS.
--- NOTE | 2018-11-06 05:12 | NUR ---
SLEPT LATE SINCE 2315 & SLEEPING GOOD ALL NIGHT.TURNS SELF @ NIGHT.BRP W/ SBA X1 BEFORE HS.REFUSED HS SNACK & REFUSED 2 UNITS SLIDING SCALE LISPRO @ HS.
[2018-11-06 07:00] VITALS: BP 119/68
--- NOTE | 2018-11-06 17:03 | NUR ---
AM ASSESSMENT AND VITAL SIGNS COMPLETED DOCUMENTED. DRESSING TO LEFT FOOT REMAINS C/D/I AT THIS TIME. PT IS ABLE TO USE A WALKER IN HIS ROOM BUT HAS ALSO BEEN PROVIDED WITH A WHEELCHAIR AND A KNEE WALKER FOR LONGER DISTANCES. PRN TYLENOL GIVEN THIS AM PRIOR TO THERAPY. FALL PRECAUTIONS AND HOURLY ROUNDING CONTINUE.
[2018-11-06 20:45] VITALS: BP 95/60
--- NOTE | 2018-11-07 02:54 | NUR ---
ASSUMED CARE @ 1934-11[birth year]-.ON TOILET @ THIS TIME HAVING BM.BRP W/ GAIT BELT & WALKER.NWB LEFT LE OBSERVED.ISOLATION OBSERVED.WEARING SURGICAL SHOE ON LEFT FOOT WHEN AMBULATING.LOVENOX RESUMED & STARTED @ HS.EDUCATION GIVEN ON ACTION & SIDE EFFECTS.HS DOSE COLACE HELD.SEE PAIN MANAGEMENT @ 2233.BED ALARM PUT ON @ 2233.ON HOURLY ROUNDS.CHAIN MAKER HAND DOING ODD HOUR ROUNDS.TURNS SELF @ NIGHT. PICC LINE RIGHT UPPER ARM HAS GOOD BLOOD RETURN & FLUSHES GOOD @ 2129.
--- NOTE | 2018-11-07 05:24 | NUR ---
SLEPT LATE SINCE 2319 & SLEEPING GOOD ALL NIGHT.BRP X1 W/ ASSIST @ 193. REFUSED HS SNACK.
[2018-11-07 08:00] VITALS: BP 101/64
[2018-11-07 20:30] VITALS: BP 104/62
--- NOTE | 2018-11-07 20:55 | NUR ---
SITTING UP IN RECLINER WATCHING TV. DENIES DISCOMFORT. HAS SURGICAL SHOE ON LEFT FOOT. ADELSO WRAP AROUND LEFT FOOT DRY/INTACT. SNACK PROVIDED.
--- NOTE | 2018-11-08 05:13 | NUR ---
RESTED QUIETLY. UP X ONE AROUND 0400 TO THE BATHROOM TO VOID. GOOD BLOOD RETURN FROM SINGLE LUMEN UPPER RIGHT ARM PICC. HOURLY ROUNDING IN PROGRESS.
[2018-11-08 08:00] VITALS: BP 102/61
--- NOTE | 2018-11-08 12:52 | NUR ---
PT HAS HAD LARGE AMOUNT OF BLEEDING CONTAINED IN DRESSING. DRESSING REINFORCED WITH COLD PACK PLACED FOR 20 MIN. PT RESTS IN BED WITH LT FOOT ELEVATED. PRN FOR PAIN GIVEN WITH GOOD EFFECT. NOTIFIED AND WILL SEE PT SATURDAY. NOTIFIED WITH ORDERS MAY NOT MAKE MINUTES. DRESSING DRY AND INTACT WITH NO NEW BLEEDING NOTED.PT ALERT AND ORIENTATED.
--- NOTE | 2018-11-08 18:27 | NUR ---
PT HAS RESTED IN BED WITH FOOT ELEVATED THIS AFTERNOON AND NOW IN DINNINGROOM EATING DINNER PER HIS REQUEST PER W/C WITH LT LEG ELEVATED. DRESSING HAS REMAINED DRY ANDINTACT TO LT FOOT. PRN FOR PAIN GIVEN WITH GOOD EFFECT. PT IS CONTINENT OF B+B AND ABLE TO ADJUST CLOTHING AND CLEANSE SELF. PT REMAINS ALERT AND ORIENTATED.
[2018-11-08 20:22] VITALS: BP 112/72
--- NOTE | 2018-11-08 20:40 | NUR ---
SITTING UP IN RECLINER WATCHING TV. DENIES DISCOMFORT. AMBULATED TO THE BATHROOM WITH GAITBELT, SBA, NWB LLE, SURGICAL SHOE TO LEFT FOOT. SAT AT SINK TO GIVE SELF A UPPER BODY BATH. STAFF WASHED PATIENT'S BACK. ABLE TO DRESS SELF WITH SET UP. SNACK PROVIDED.
--- NOTE | 2018-11-09 05:48 | NUR ---
TYLENOL GIVEN AT 0109 PER REQUEST FOR COMPLAINT OF LEFT FOOT PAIN WITH RELIEF. GOOD BLOOD RETURN FORM UPPER RIGHT ARM SINGLE LUMEN PICC. REMAINS ON IV ABT. UP TO THE BATHROOM THIS AM TO VOID. HOURLY ROUNDING IN PROGRESS.
[2018-11-09 08:42] VITALS: BP 103/58
--- NOTE | 2018-11-09 17:03 | NUR ---
PT HAS BEEN AROUND UNIT ON SCOOTER WITH NURSE AT SIDE AND GAITBELT ON AND TOLERATED WELL. DRESSING HAS REMAINED DRY AND INTACT WITH NO BLEEDING NOTED TODAY. PICTURES TO BE TAKEN TOMORROW WHEN COMES TO CHANGE DRESSING. PT SEEMS TO KEEP FOOT UP WHEN NOT WEARING ORTHO SHOE AND REMAINS NWB TO LT FOOT. PT USES WALKER AND GAITBELT TO GO TO BATHROOM WITH SBA. PT HAS COME TO LUNCH PER W/C WITH LT FOOT RAISES ON W/C LEG. PT REMAINS ALERT AND ORIENTATED PRN FOR PAIN GIVEN X1 WITH GOOD EFFECT THIS AFTERNOON. RT UPPER ARM PICC LINE FLUSHES WELL WITH IV ANTIBIOTICS INFUSING WELL.
[2018-11-09 21:00] VITALS: BP 141/71
--- NOTE | 2018-11-09 21:00 | NUR ---
SITTING UP IN RECLINER TALKING ON CELL AND WATCHING TV. ADELSO WRAP AROUND LEFT FOOT DRY/INTACT. SNACK PROVIDED.
[2018-11-10 04:16] LABS: ABSOLUTE EOSINOPHILS 0.2 thou/uL (0.0-0.7); ABSOLUTE LYMPHOCYTES 2.7 thou/uL (0.8-5.3); ABSOLUTE MONOCYTES 0.6 thou/uL (0.0-1.2); ABSOLUTE NEUTROPHILS 2.8 thou/uL (1.6-8.1); BASOPHILS 0.6 %; EOSINOPHILS 3.9 %; HEMATOCRIT 35.7 % (42.0-52.0); LYMPHOCYTES 42.9 %; MCHC 33.7 g/dL (28.0-37.0); MCV 98.1 fL (80.0-100.0); MONOCYTES 9.1 %; MPV 10.2 fl. (7.2-11.1); NUCLEATED RBCS 0 /100WBC; PLATELET COUNT* 147 thou/uL (150-400); POLYS 43.5 %; RBC 3.64 mil/uL (4.50-6.00); RDW-CV 13.5 % (10.5-14.5); WBC 6.3 thou/uL (4.0-11.0)
[2018-11-10 04:24] LABS: CALCIUM 9.9 mg/dL (8.5-10.1); CREATININE 1.5 mg/dL (0.6-1.3); POTASSIUM 4.1 mmol/L (3.5-5.1); TOTAL BILIRUBIN 0.4 mg/dL (<0.1-1.0); TOTAL PROTEIN 7.4 g/dL (6.4-8.2)
--- NOTE | 2018-11-10 05:49 | NUR ---
RESTED QUIETLY. UP X ONE DURING THE NIGHT TO THE BATHROOM TO VOID. NO FURTHER COMPLAINT OF PAIN. HOURLY ROUNDING IN PROGRESS.
[2018-11-10 08:00] VITALS: BP 116/71
--- NOTE | 2018-11-10 13:18 | NUR ---
AM ASSESSMENT AND VITAL SIGNS COMPLETED DOCUMENTED. PT PLEASANT AND COOPERATIVE, PARTICIPATING IN ALL THERAPY SESSIONS SCHEDULED. DRESSING TO LEFT FOOT REMAINS C/D/I. DR CHARLTON SHOULD BE IN TO CHANGE THE DRESSING TODAY. HOURLY ROUNDING AND FALL PRECAUTIONS IN PLACE.
--- NOTE | 2018-11-10 14:27 | NUR ---
PT STATES HE IS REACTING TO THE DECREASED LANTUS DOSE, BLOOD GLUCOSE CHECKED AND IT IS 109. PT REQUESTED APPLE JUICE AND LORENA CRACKERS, STATES HE FEELS WEAK AND SWEATY. PT GIVEN JUICE AND CRACKERS, INSTRUCTED TO NOTIFY NURSING IF HE CONTINUES TO FEEL WEAK.
--- NOTE | 2018-11-10 14:55 | NUR ---
PT IS RESTING IN BED, NO FURTHER COMPLAINTS AT THIS TIME.
[2018-11-10 19:00] VITALS: BP 114/73
--- NOTE | 2018-11-10 22:04 | NUR ---
AT 2030, BS: 117. PT ADAMANT THAT WANTS LANTUS 30 UNITS AND NOT DECREASED DOSE. HE FEELS THIS WAY ESPECIALLY AFTER EPISODE OF WEAKNESS AND SWEATING EARLY IN AFTERNOON. DISCUSSED AT LENGTH WITH PT ABOUT BS LEVELS PASSED WEEK AND WHY LANTUS HAS BEEN DECREASED. BUT PT SAYS THE LOWER NUMBERS ARE HIS NORMAL AND DOES NOT WANT TO CHANGE THE DOSING. ORDER OBTAINED FROM DR REDMOND TO CHANGE BACK TO LANTUS 30 UNITS. HS SNACK GIVEN.
--- NOTE | 2018-11-11 05:22 | NUR ---
CONTINUES ON CONTACT ISOLATION. SBA WITH GAIT BELT AND WALKER. NWB LLE. HOPS WITH WALKER TO BATHROOM. DOES OWN CARES. ORTHO SHOE ON WHEN UP. DRESSING TO LEFT FOOT IS C/D/I. NO BLEEDING THRU NOTED. TYLENOL GIVEN FOR FOOT PAIN. PT STATES THAT PAST FEW DAYS PAIN HAS RADIATED FROM INCISION SITE TO GREAT TOE. LEFT TOES WARM, SENSATION INTACT. PT REFUSED TO ELEVATE LLE ONTO PILLOW. IV SL PICC FLUSHES WELL WITH GOOD BLOOD RETURN. TAKES PILLS WHOLE WITHOUT ISSUES. SLEPT WELL. CALL LIGHT IN REACH.
[2018-11-11 08:00] VITALS: BP 123/70
--- NOTE | 2018-11-11 12:03 | NUR ---
DR CONRAD HERE TO SEE PT. DRESSING TO LEFT FOOT REMOVED. PT AND DR CONRAD DISCUSSED ANTIBIOTICS AND CONTINUED PLAN OF CARE. WHEN DR CONRAD FINISHED I TOOK A PICTURE OF THE WOUND AND DRESSED IT. THE INCISIION IS WELL APPROXIMATED WITH SUTURES INTACT. AQUACEL AG PLACED IN SMALL OPEN DRAINAGE HOLE. PT EXPRESSED HE IS RELIEVED TO SEE THE WOUND AND IS HAPPY WITH HIS PROGRESS. NO ACUTE DISTRESS AT THIS TIME.
[2018-11-11 19:30] VITALS: BP 100/70
--- NOTE | 2018-11-12 05:28 | NUR ---
ASSUMED CARES AT 1920. ALERT AND ORIENTED. PLEASANT. DENIED ANY NEED FOR PAIN MEDS. SAYS THAT RADIATING PAIN IN LEFT FOOT HAS LESSEN GREATLY SINCE DRESSING WAS CHANGED. PT PUTTING SOME WT ON LEFT HEEL WHICH HE SAYS WORKS FINE. UP WITH SBA GAIT BELT AND WALKER TO BATHROOM. DOES OWN CARES. USES SCOOTER FOR LONGER DISTANCES. DRESSING TO LEFT FOOT IS C/D/I. PT STATES IS HAPPY WITH HOW INCISION LOOKS AND PROGRESS. TIANNA SL PICC FLUSHING WELL WITH GOOD BLOOD RETURN. PICC DRESSING WAS CHANGED. WASN'T HAPPY THAT BS 194 AT HS. SAYS THAT HE DRANK TOO MUCH JUICE AT SUPPER. SLEPT WELL. NO ISSUES OVERNIGHT. CALL LIGHT IN REACH.
[2018-11-12 08:00] VITALS: BP 122/73
--- NOTE | 2018-11-12 13:30 | NUR ---
SW met with pt to review team conference summary and plan to reteam with possible dc next Monday 11/19. Pt was okay with plan; pt wants to be able to stay as long as possible to continue strengthening in therapies and healing of his wound on his foot. Pt wants the surgeon to have input in dc planning. Pt also discussed handicap parking tag to be beneficial in his healing and going to appts, etc. Pt may be able to be mod I by 11/16? and then goal to dc Saturday after team 11/19 but pt still wants to make sure about healing, whether he can switch to oral abx. Then SW met with pt again to provide handicap parking tag and discuss plan again as pt nurse had said that pt thought he would dc 11/[address] Lemos. SW questioned this to pt but he said he thought that date was Saturday and he really would rather stay until Saturday. SW to continue to follow to assist with safe dc planning.
[2018-11-12 20:18] VITALS: BP 144/57
--- NOTE | 2018-11-12 22:15 | NUR ---
AWAKENED FOR HS REASSESSMENT AND MED PASS. STATES LEFT FOOT PAIN HAS DECREASED TO A "3" AND DECLINED ON OFFER OF ANYMORE PAIN MEDICATION. RECEIVED TYLENOL AT END OF DAY SHIFT. ADELSO WRAP AROUND LEFT FOOT DRY/INTACT. GOOD BLOOD RETURN FORM RIGHT UPPER SINGLE LUMEN PICC. ACCUCHECK BEFORE TWO APPLE JUICES AND LORENA CRACKERS 41. ACCUCHECK INCREASED TO 72. BOX LUNCH PROVIDED AND CONSUMED. INFORMED SOFTWARE TESTER DR. ESPINAL OF PATIENT'S LOW ACCUCHECK. NEW ORDERS RECEIVED.
--- NOTE | 2018-11-13 05:01 | NUR ---
RESTED QUIETLY. UP X 0445 TO GO TO THE BATHROOM TO VOID. STATES LEFT FOOT PAIN AT A "3" BUT DECLINED OFFER OF TYLENOL. HOURLY ROUNDING IN PROGRESS.
[2018-11-13 08:08] VITALS: BP 91/55
--- NOTE | 2018-11-13 16:51 | NUR ---
PT CALLS FOR ASSIST TO BATHROOM WITH WALKER AND SBA. PT REMINDED OF WEIGHT BEARING TO HEEL ONLY.PT IS CONTINENT OF B+B. PT EATS MEALS IN DINNINGROOM AND IS SOCIAL WITH OTHERS. DRESSING TO LT FOOT DRY AND INTACT,PT WEARS WALKING SHOE WHEN UP.PICC LINE INTACT TO RT.UPPER ARM AND FLUSHES WELL IV ANTIBIOTIC TOLERATED WELL. PT REMAINS ALERT AND ORIENTATED.
[2018-11-13 20:20] VITALS: BP 112/66
--- NOTE | 2018-11-13 20:30 | NUR ---
SITTING IN BED WATCHING TV. ACCUCHECK 72. BOX LUNCH AND APPLE JUICE PROVIDED. AMBULATED TO THE BATHROOM WITH SBA, GAITBELT, WALKER, WEIGHT BEARING TO LEFT HEEL WITH SURGICAL SHOE ON. DENIES NEED FOR PAIN MEDICATION.
--- NOTE | 2018-11-14 05:39 | NUR ---
RESTED ON/OFF. NO COMPLAINTS VOICED. UP TO THE BATHROOM THIS MORNING TO VOID. HOURLY ROUNDING IN PROGRESS.
[2018-11-14 08:24] VITALS: BP 115/60
--- NOTE | 2018-11-14 16:44 | NUR ---
ASSUMMED CARE OF PT AT 0730, PT ALERT AND ORIENTED, TRANSFERS WITH SBA HEEL TOUCH ONLY ON LEFT FOOT, FROM BED TO CHAIR OR TO SCOOTER, DR CHARLTON CHANGED DRESSING AND PT WORKING WITH PT AFTER DRESSING CHANGE AND PT HAD LARGE/COPIOUS AMOUNT OF BRIGHT RED BLOOD FROM FOOT WOUND, PT LEG ELEVATED, ICE BAG APPLIED, DR CHARLTON NOTIFIED, THERAPY HELD THIS PM, DRESSING REINFORCED, PT DENIES PAIN, PT DISCUSSED THAT HE DOES NOT WANT ANY INSULIN CHANGES, WANTS TO ONLY HAVE HIS ENCDOCRINOLIGIST DO ANY CHANGES REGARDING HIS DIABETIC MEDS, PT PARTICIPATED IN ALL THERAPIES, HOURLY ROUNDING COMPLETED, ASSESSMENT COMPLETE, WILL CONINUE TO MONITOR.
[2018-11-14 19:00] VITALS: BP 116/68
[2018-11-15 00:35] VITALS: BP 131/64
--- NOTE | 2018-11-15 00:50 | NUR ---
AT 0015, PT C/O "FEELING FUNNY". PT ASKED TO HAVE VITALS TAKEN AND BS CHECKED. ACCUCHECK 57. BOXED LUNCH GIVEN WITH JUICE. WILL CONTINUE TO MONITOR.
--- NOTE | 2018-11-15 05:39 | NUR ---
ASSUMED CARES AT 1920. ALERT AND ORIENTED. ALREADY IN BED. PT EXPRESSED FRUSTRATION OVER CONTINUED BLEEDING OF AMPUTAION SITE SINCE SURGERY. IS ASKING FOR XRAY/MRI OF FOOT. CONCERNED ABOUT "SOMETHING ELSE GOING ON." DRESSING TO LEFT FOOT IS INTACT AND DRY. NO BLEED THRU NOTED. DENIED ANY NEED FOR PAIN MEDS. PT USED URINAL AT BEDSIDE. DID NOT WANT TO GET UP TO BATHROOM AND SO BSC PLACED NEXT TO BED. LEFT LEG IS ELEVATED UP ONTO PILLOW. SL PICC TIANNA IS FLUSHING WELL AND GOOD BLOOD RETURN. ON CONTACT ISOLATION. SLEPT SOME OF THE NIGHT. CALL LIGHT IN REACH.
[2018-11-15 07:00] VITALS: BP 123/77
--- NOTE | 2018-11-15 16:17 | NUR ---
ASSUMMED CARE OF PT AT 0730, PT ALERT AND ORIENTED, PT TRANSFERS WITH SBA GB WITH HEEL TOUCH WT BEAR STATUS, AMBULATES WITH GB AND SCOOTER, AMBULATES TO DININGROOM FOR LUNCH, DRESSING TO LEFT FOOT DRY AND INTACT, ELEVATED WHEN IN BED, PICC LINE PATENT, VOIDS PER URINAL/TOILET, BM X1 THIS SHIFT, TAKING FOOD AND FLUIDS WELL, STATES PAIN TOLERABLE AND DOES NOT NEED PAIN MEDICATION, PHYSCIAN CHANGED BEDTIME INSULIN, PT STATES HE DOES NOT LIKE A CHANGE TO INSULIN BUT WILL TAKE DECREASED DOSAGE TONIGHT AND SEE HOW HIS BLOOD SUGARS REACTS. PATICIPATED IN ALL THERAPIES, HOURLY ROUNDING COMPLETED, ASSESSMENT COMPLETE, WILL CONTINUE TO MONITOR.
[2018-11-15 20:00] VITALS: BP 111/64
[2018-11-16 05:26] LABS: HEMATOCRIT 34.3 % (42.0-52.0); HEMOGLOBIN 11.9 gm/dL (14.0-18.0); MCH 33.7 pg (26.0-34.0); MCHC 34.6 g/dL (28.0-37.0); MCV 97.6 fL (80.0-100.0); MPV 10.7 fl. (7.2-11.1); NUCLEATED RBCS 0 /100WBC; PLATELET COUNT* 140 thou/uL (150-400); RBC 3.52 mil/uL (4.50-6.00); RDW-CV 13.3 % (10.5-14.5); WBC 7.4 thou/uL (4.0-11.0)
--- NOTE | 2018-11-16 05:32 | NUR ---
ASSUMED CARES AT 1920. ALERT AND ORIENTED. PLEASANT. EXPRESSES CONCERNS ABOUT POSSIBLE FOOT BLEEDING AFTER D/C. DENIED ANY NEED FOR PAIN MEDS. SBA WITH GAIT BELT AND WALKER. PARTIAL WT BEARING TO LEFT HEEL WITH SURGICAL SHOE. UP TO BATHROOM. DOES OWN CARES. WAS AGREEABLE TO TAKING LANTUS 26 UNITS PER NEW ORDER. BOXED LUNCH GIVEN SNACK. SLEPT WELL. NO ISSUES OVERNIGHT. CALL LIGHT IN REACH.
[2018-11-16 06:07] LABS: CALCIUM 9.4 mg/dL (8.5-10.1); CREATININE 1.5 mg/dL (0.6-1.3); MAGNESIUM 1.9 mg/dL (1.8-2.4); PHOSPHORUS* 4.2 mg/dL (2.5-4.9); POTASSIUM 4.1 mmol/L (3.5-5.1)
[2018-11-16 06:26] LABS: ABSOLUTE EOSINOPHILS 0.1 thou/uL (0.0-0.7); ABSOLUTE LYMPHOCYTES 2.5 thou/uL (0.8-5.3); ABSOLUTE MONOCYTES 0.1 thou/uL (0.0-1.2); ABSOLUTE NEUTROPHILS 4.6 thou/uL (1.6-8.1); ATYPICAL LYMPHS 6 %; PLATELET ESTIMATE ADEQUATE
[2018-11-16 09:19] VITALS: BP 124/75
--- NOTE | 2018-11-16 15:58 | NUR ---
PT HAS BEEN ESCORTED AROUND UNIT WITH GAITBELT ON AND USING SCOOTER WITH SBA OF 1 AND TOLERATED WELL. DRESSING TO LT FOOT HAS STAYED DRY AND INTACT. PT KEEPS FOOT ELEVATED MOST OF TIME. PT CALLS FOR ASSIST TO BATHROOM WITH WALKER SHOE ON AND USE OF WALKER WITH SBA. PT DENIES PAIN TODAY. PT RMAINS ALERT AND ORIENTATED AND COMES TO DININGROOM FOR MEALS. HOURLY ROUNDING CONTINUES.
[2018-11-16 20:00] VITALS: BP 113/53
--- NOTE | 2018-11-17 05:25 | NUR ---
ASSUMED CARES AT 1920. ALERT AND ORIENTED. PLEASANT. DENIED ANY NEED FOR PAIN MEDS. SBA WITH GAIT BELT AND WALKER. UP TO BATHROOM. WT BEARING TO LEFT HEEL. LEFT FOOT DRESSING IS INTACT. PT CONTINUES TO HAVE SOME CONCERNS ABOUT BLOOD SUGARS, IV ABX AND IF INCISION SITE CONTINUES TO BLEED ESPECIALLY AFTER D/C. SLEPT WELL WITHOUT ANY ISSUES. CALL LIGHT IN REACH AND BED ALARM.
[2018-11-17 09:50] VITALS: BP 107/68
--- NOTE | 2018-11-17 13:47 | NUR ---
SW met with pt to discuss dc planning for team to reteam on Saturday and pt to dc home on Saturday afternoon. Pt preference for HH services as SW explained the therapies would be covered by Medicare; pt preference for [facility]. [phone] fax [phone]. Only PT OT recommended, not a nurse due to Dr Worthington's orders to not have a nurse. Pt will follow up weekly with Dr Worthington and will follow up at least initially next Saturday with Dr Laws. Pt transitioning to oral abx at dc so does not need IV abx arranged to which pt is understanding and thankful due to his already outstanding bill from [employer]. Pt has knee scooter and plans to purchase his own RW and plans to receive reimbursement for his knee scooter. No other needs expressed at this time.
--- NOTE | 2018-11-17 16:46 | NUR ---
ASSUMMED CARE OF PT AT 729, PT ALERT AND ORIENTED, TRANSFERS WITH SBA GB AND WALKER, USES SCOOTER FOR LONGER DISTANCES, DENIES NEED FOR PAIN MEDICATION, TAKING FOOD AND FLUIDS WELL, DR CHARLTON DISCUSSED WITH PT HIS WOUND CARE AND THAT NO DRESSING CHANGES TO SURGICAL SITE UNTIL SEEN BY DR CHARLTON ON NOV 26, AND DR CONRAD DISCUSSED CHANGING TO ORAL ANTIBIOTICS, PT AGREEABLE AND PLANNING FOR DISCHARGE SATURDAY. PT TO CONTINUE HEEL WEIGHT BEAR ONLY, PICC LINE PATENT, DRESSING CHANGED PER PT REQUEST, DAMP AFTER SHOWER, AMBULATES TO DININGROOM FOR LUNCH, PARTICIPATED IN ALL THERAPIES, HOURLY ROUNDING COMPLETED, ASSESSMENT COMPLETE, WILL CONTINUE TO MONITOR.
[2018-11-17 20:23] VITALS: BP 111/70
--- NOTE | 2018-11-18 00:07 | NUR ---
ASSUMED CARE AT 1930. PATIENT SITTING IN CHAIR WITH LEGS DEPENDENT. SURGICAL BOOT AND DRESSING TO LT FOOT C/D/I. TAKES PILLS WHOLE WITH WATER. UP WITH SBA, WT BEARING ON HEEL ONLY, GAIT BELT, WALKER. RUE PICC LINE FLUSHES WELL. STARTED ORAL ANTIBIOTICS TODAY. HAD BOX LUNCH WITH APPLE JUICE FOR HS SNACK. NO C/O PAIN. VOIDS PER TOILET UNTIL HS, THEN WILL USE URINAL THROUGH NIGHT. HOURLY ROUNDS CONTINUE. BED ALARM ON. CALL LITE IN REACH.
--- NOTE | 2018-11-18 05:37 | NUR ---
SLEPT WELL. TURNS SELF. NO C/O PAIN. HOURLY ROUNDS CONTINUE. BED ALARM ON. CALL LITE IN REACH.
[2018-11-18 07:29] VITALS: BP 113/72
--- NOTE | 2018-11-18 17:07 | NUR ---
ASSUMMED CARE OF PT AT 0730, PT ALERT AND ORIENTED, TRANSFERS WITH SBA GB AND WALKER, AMB TO BATHROOM, FOR LONGER DISTANCES USES SCOOTER, AMBULATED WITH SCOOTER AROUND 3W UNIT SEVERAL TIMES THRU OUT SHIFT, LARGE BM X 1, DENIES NEED FOR PAIN MEDICATION, DRESSING TO LEFT FOOT C/D/I, DR CHARLTON HERE AND STATED TO CHANGE DRESSING PRIOR TO DISCHARGE IN AM BUT DO NOT TOUCH PACKING, THEN DRESSING SHOULD NOT BE CHANGED UNTIL HE SEES PT IN OFFICE NEXT WEEK. PICC LINE PATENT, HOURLY ROUNDING COMPLETED, ASSESSMENT COMPLETE, WILL CONTINUE TO MONITOR.
[2018-11-18 20:30] VITALS: BP 125/57
--- NOTE | 2018-11-18 20:30 | NUR ---
SITTING UP IN CHAIR WATCHING TV. IN GOOD [employer]IRITS. STATES HAD VISITORS EARLIER. ADELSO WRAP AROUND LEFT FOOT DRY/INTACT. HAS SURGICAL SHOE ON. PROVIDED WITH A BOX LUNCH. GOOD BLOOD RETURN FOR SINGLE LUMEN RIGHT UPPER PICC LINE.
--- NOTE | 2018-11-19 05:28 | NUR ---
UP X ONE DURING THE NIGHT TO THE BATHROOM TO VOID. NO COMPLAINTS VOICED. HOURLY ROUNDING IN PROGRESS.
[2018-11-19 08:15] VITALS: BP 123/94
--- NOTE | 2018-11-19 10:32 | NUR ---
PT WAS GETTING READY FOR A SHOWER WITH OT WHEN LT FOOT BEGAIN TO BLEED AGAIN. LARGE AMOUNT OF BRIGHT RED BLOOD NOTED. DR. DACOSTA CAME TO SEE PT AND INSPECTED FOOT AND REDRESSED IT. PLANS TO TAKE PT TO SURGERY THIS AFTERNOON.HE HAS NOTIFIED SURGERY,WINDOW SHADE CLOTH SEWER NOTIFIED WITH PLANS FOR PT TO ADMITT TO 308. PT DID EAT BREAKFAST AND IS NPO NOW. PT UNDERSTANDS NEED TO DISCHARGE AND READMITT TO ACUTE. PT REMAINS ALERT AND ORIENTATED AND IS CONTINENT OF B+B.
--- NOTE | 2018-11-19 13:25 | CON ---
[address] [address] CONSULTATION Name: JOSIANERICO Lucinda Room: [address] IN M.R.#: [id number] Admission: 11/04/18 Attend Phys: Ashley Lemos, Discharge: 11/19/18 Date of : 50 Report #: [id number] THIS REPORT FOR: //name// CC: Kody Lemos Physician staff DATE OF SERVICE: 11/17/2018 CHIEF COMPLAINT: Postoperative visit for left partial fifth ray resection for deep tissue infection. He had some bleeding after the last dressing change, which was controlled with pressure and elevation. He has had none since. He denies pain to the foot, he has good appetite, he has been afebrile. He is on parenteral meropenem with planned discharge to home in 2 days on p.o. antibiotics. PHYSICAL EXAMINATION: Incision is well approximated, no erythema, drainage, necrosis or dehiscence. No active bleeding noted. Foot is warm with no signs of acute vascular embarrassment and an immediate feliciano-incisional capillary refill. Negative Homans' or Gonzalez sign to either extremity. IMPRESSION: Status post left partial fifth ray resection with osteomyelitis, type 2 diabetes mellitus with peripheral neuropathy. PLAN: The incision was cleansed and dried and redressed with Aquacel Ag, 4 x 4s, ABD, Kerlix and Mirza bandage. The patient to remain nonweightbearing to the foot with crutches, walker or knee scooter. I will follow up next week at [facility] with Dr. Laws. <ELECTRONICALLY SIGNED> By: Kody Worthington DPM 11/19/18 1325 1209 [id number] Worthington DPM /nt
--- NOTE | 2018-11-19 13:25 | CON ---
[address] [address] CONSULTATION Name: JOSIANERICO Lucinda Room: [address] IN [place].#: [id number] Admission: 11/04/18 Attend Phys: Ashley Lemos DO Discharge: 11/19/18 Date of : 50 Report #: [id number] THIS REPORT FOR: //name// CC: Kody Lemos Physician staff DATE OF SERVICE: 11/11/2018 CHIEF COMPLAINT: Status post resection, right distal fifth ray with primary closure for deep tissue infection. HISTORY OF PRESENT ILLNESS: Surgical pathology negative for osteomyelitis. He is on parenteral antibiotics with good tolerance. He is afebrile, had good appetite, denies pain. He has been nonweightbearing to the foot due to some postoperative bleeding, but he has not had any bandage saturation for 2 days. The nurse did change his foot bandage today prior to my arrival. PHYSICAL EXAMINATION: I reviewed the photograph of the foot, which shows well coaptation of the incision with low grade inflammation of the proximal aspect and no dehiscence, bleeding or signs of acute vascular embarrassment. He has a negative Homans or Gonzalez sign to either extremity. IMPRESSION: Status post left partial fifth ray resection for deep tissue infection. PLAN: I will allow the patient transition to partial weightbearing in surgical shoe with a walker for short distances. I will follow up with him during his rehabilitation. <ELECTRONICALLY SIGNED> By: Kody Worthington DPM 11/19/18 1325 1239 [id number] Worthington DPM /nt
[2018-11-19] MEDS ORDERED: LIPITOR 20 MG T20 M1 PO (15:05)
== END 2018-11-19 10:54 | disposition short-term general hospital (02) | DRG 638 ==
LOC: M.REH 16:17
PROVIDERS: Family Medicine; Specialist; ADMIT Physical Medicine & Rehabilitation
DX: E11.69 Type 2 diabetes mellitus with other specified complication (principal); M86.8X7 Other osteomyelitis, ankle and foot; R53.81 Other malaise; E78.5 Hyperlipidemia, unspecified; E11.42 Type 2 diabetes mellitus with diabetic polyneuropathy; E11.319 Type 2 diabetes mellitus with unspecified diabetic retinopathy without macular edema; I12.9 Hypertensive chronic kidney disease with stage 1 through stage 4 chronic kidney disease, or unspecified chronic kidney disease; E11.621 Type 2 diabetes mellitus with foot ulcer; N18.3 Chronic kidney disease, stage 3 (moderate); L97.529 Non-pressure chronic ulcer of other part of left foot with unspecified severity; E11.22 Type 2 diabetes mellitus with diabetic chronic kidney disease; E11.649 Type 2 diabetes mellitus with hypoglycemia without coma; Z79.4 Long term (current) use of insulin; Z89.422 Acquired absence of other left toe(s); Z82.49 Family history of ischemic heart disease and other diseases of the circulatory system; Z88.8 Allergy status to other drugs, medicaments and biological substances; Z98.52 Vasectomy status

== ENCOUNTER 2018-11-19 10:34 | Inpatient (IN) | payer MEDICARE, OTHER ==
[~2018-11-19] VITALS: Ht 177.8 cm; Wt 114.8 kg
[2018-11-19 11:05] VITALS: BP 138/80
--- NOTE | 2018-11-19 12:13 | NUR ---
PT ADMITTED TO UNIT FROM REHAB. PT WILL HAVE SURGERY TODAY ON HIS LEFT FOOT AMPUTATION DUE TO ARTERIAL BLEEDING. PT IS ON ROOM AIR. PT HAS 2+ PULSES IN UPPER AND RT LOW EXTREMITITY. PT IS UPSET ABOUT NEEDING SURGERY AND WANTS IT TO BE OVER WITH. FALL RISK PRECAUTIONS IN PLACE. WILL CONTINUE TO MONITOR.
--- NOTE | 2018-11-19 12:30 | NUR ---
PT.READMITTED FROM REHAB UNIT. FOOT WOUND BEGAN BLEEDING AGAIN. WILL GO TO SURGERY THIS AFTERNOON FOR CONTROL OF BLEEDING. CM DISCUSSED WITH . OK WITH HIM TO DISCHARGE HOME TOMORROW IF STABLE AND NO BLEEDING.
[2018-11-19] MEDS ORDERED: LIPITOR 20 MG T20 M1 PO (15:05)
[2018-11-19 15:38] VITALS: BP 138/80
--- NOTE | 2018-11-19 16:38 | NUR ---
PT REMAINED ALERT AND ORIENTED THIS SHIFT. PT IS UPSET AND IRRITATED WITH CURRENT EVENTS WITH FOOT AMPUTATION AND THE NEED FOR CORRECTIV ESURGERY DUE TO BLEEDING. PT BEEN NPO SINCE 0900. PT LEFT FOR SURGERY. FALL RISK PRECAUTIONS IN PLACE. HOURLY ROUNDING COMPLETED. WILL CONTINUE TO MONITOR.
--- NOTE | 2018-11-19 18:58 | NUR ---
PT RETURNED FROM SURGERY. PT IS ALERT AND ORIENTED. PT IS ON ROOM AIR. PT STATES THEY HAVE PAIN 2/10 AND WANT TO WAIT ON PAIN MEDS. FALL RISK PRECAUTIONS IN PLACE.
[2018-11-19 20:15] VITALS: BP 121/68
[2018-11-20] VITALS (7 sets, daily range): BP systolic 106–138; BP diastolic 64–80
[2018-11-20 05:21] LABS: ABSOLUTE EOSINOPHILS 0.2 thou/uL (0.0-0.7); ABSOLUTE LYMPHOCYTES 2.2 thou/uL (0.8-5.3); ABSOLUTE MONOCYTES 0.6 thou/uL (0.0-1.2); ABSOLUTE NEUTROPHILS 3.9 thou/uL (1.6-8.1); BASOPHILS 0.3 %; EOSINOPHILS 3.2 %; HEMATOCRIT 28.2 % (42.0-52.0); HEMOGLOBIN 9.6 gm/dL (14.0-18.0); LYMPHOCYTES 32.2 %; MCH 33.6 pg (26.0-34.0); MCHC 34.2 g/dL (28.0-37.0); MCV 98.2 fL (80.0-100.0); MPV 10.2 fl. (7.2-11.1); NUCLEATED RBCS 0 /100WBC; PLATELET COUNT* 117 thou/uL (150-400); POLYS 56.3 %; RBC 2.87 mil/uL (4.50-6.00); WBC 6.9 thou/uL (4.0-11.0)
--- NOTE | 2018-11-20 05:23 | NUR ---
PT SLEPT ON AND OFF THIS SHIFT. ASSESSMENT DOCUMENTED. MEDS GIVEN PER E-MAR. PICC PATENT. PAIN MEDS GIVEN PER E-MAR WITH PARTIAL RELIEF. DRESSING TO LEFT FOOT REMAINED C/D/I. PT EXPRESSED CONCERNS THAT HIS INSULIN ORDERS IN THE COMPUTER ARE NOT CORRECT. WILL CONTINUE WITH PLAN OF CARE.
[2018-11-20 05:36] LABS: % SATURATION 25 % (20-39); IRON 58 ug/dL (50-175)
[2018-11-20 05:43] LABS: ALBUMIN 2.8 g/dL (3.4-5.0); CREATININE 1.4 mg/dL (0.6-1.3); POTASSIUM 4.1 mmol/L (3.5-5.1); TOTAL BILIRUBIN 0.3 mg/dL (<0.1-1.0); TOTAL PROTEIN 6.6 g/dL (6.4-8.2)
[2018-11-20 06:36] LABS: ESR (SEDRATE) 50 mm/hr (0-20)
--- NOTE | 2018-11-20 15:07 | NUR ---
WOUND CARE NOTE: CONSULT RECEIVED FOR DM FOOT WOUND, POST OP DRESSING INTACT TO LEFT FOOT WITHOUT STRIKE THOUGH. 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 LEFT DRESSING IN PLACE, PHYSICIAN HAD ALREADY SEEN THIS AM. PATIENT STATES HE IS OPTIMISTIC ABOUT HIS FOOT. STATES HE HAS BEEN FIGHTING THIS WOUND SINCE 2017. PATIENT DID NOT BRING UP ANY FRUSTRATIONS, JUST THANKFUL EVERYTHING SEEMS TO BE GOING IN THE RIGHT DIRECTION. EDUCATED PATIENT ON PROTECTING THE FOOT AND NUTRITION TO ASSIST IN WOUND HEALING, COMMUNICATED UNDERSTANDING. PATIENT STATES HE HAS CRUTCHES, SHOWER CHAIR, AND A KNEE WALKER AT HOME. STATES HE HAS BEEN WORKING WITH PT ON STAIRS BECAUSE HE HAS 17 AT HOME. PATIENT TO FOLLOW UP WITH JAIME IN THE WOUND CENTER ON SATURDAY.
--- NOTE | 2018-11-20 18:20 | NUR ---
PATIENT RESTING UP IN CHAIR. PATIENT IS UP STANDBY ASSIST, NWB TO LEFT FOOT. PATIENT HAS HAD COMPLAINTS OF PAIN TO LEFT FOOT, TREATED ADEQUATELY WITH HYDROCODONE. DRESSING CHANGED THIS AM BY DR CHARLTON. PATIENT HAS EXCELLENT APPETITE. PATIENT DENIES ANY NEEDS AT THIS TIME. CALL LIGHT WITHIN REACH. WILL CONTINUE TO MONITOR.
[2018-11-21 05:07] LABS: HEMATOCRIT 27.8 % (42.0-52.0); HEMOGLOBIN 9.6 gm/dL (14.0-18.0); MCH 33.8 pg (26.0-34.0); MCHC 34.6 g/dL (28.0-37.0); MCV 97.9 fL (80.0-100.0); MPV 10.1 fl. (7.2-11.1); RBC 2.84 mil/uL (4.50-6.00); RDW-CV 13.6 % (10.5-14.5); WBC 6.3 thou/uL (4.0-11.0)
[2018-11-21 05:23] LABS: CALCIUM 9.2 mg/dL (8.5-10.1); CREATININE 1.3 mg/dL (0.6-1.3); POTASSIUM 4.3 mmol/L (3.5-5.1)
--- NOTE | 2018-11-21 05:36 | NUR ---
ASSUMED CARE OF PT AT 1900 PT ALERT AND ORIENTED X4. VS AND ASSESSMENT STABLE. POSITIVE CMS CHECK TO LLE NO BLEEDING FROM DRESSING. PT HAD TYLENOL FOR PAIN THEN SLEPT THROUGH THE NIGHT. WILL CONTINUE PLAN OF CARE.
[2018-11-21 07:50] VITALS: BP 143/70
[2018-11-21] MEDS ORDERED: SENNA PLUS TAB1 EACH PO (12:31)
[2018-11-21] MEDS ORDERED: AUGMENTIN 875-1 EACH PO (12:31)
[2018-11-21 13:19] VITALS: BP 138/80
[2018-11-21] MEDS ORDERED: TRAMADOL 50 MG50 MG PO (13:24)
--- NOTE | 2018-11-21 13:25 | NUR ---
PILL MAKER SPOKE TO THE PATIENT TO DISCUSS DISCHARGE PLANNING NEEDS AND HIS DISCHARGE HOME TODAY WITH WITH [facility] AT D/C. PATIENT IN AGREEMENT AND HAS NO OTHER QUESTIONS OR CONCERNS. D/C BACK TENDER PAPER MACHINE SPOKE TO INTAKE WITH [facility] TO INFORM THAT THE PATIENT WOULD D/C TODAY AND FAXED THE PATIENT'S D/C ORDERS. [facility] WILL CONTACT THE PATIENT TO ARRANGE VISIT. CM WILL REMAIN AVAILABLE TO ASSIST AND FOLLOW NEEDED.
--- NOTE | 2018-11-21 14:20 | NUR ---
PATIENT DISCHARGED TO HOME WITH HOME HEALTH. DISCHARGE PAPERS REVIEWED AND SIGNED. PRESCRIPTIONS AND INFORMATION SHEETS GIVEN. PICC LINE IN PLACE PER PATIENT DENIES ANY FURTHER NEEDS. PATIENT TAKEN BY WHEELCHAIR TO EXIT. LEFT WITH FRIEND.
--- NOTE | 2018-11-26 13:16 | CON ---
[address] [address] CONSULTATION Name: RICO JOSHUA Room: [address] IN M.R.#: [id number] Admission: 11/19/18 Attend Phys: Joann Stanley MD Discharge: 11/21/18 Date of : 50 Report #: [id number] THIS REPORT FOR: //name// CC: Shon Worthington FAM unknown Gera Stanley DATE OF SERVICE: 11/20/2018 CHIEF COMPLAINT: Postoperative day #1 for hematoma evacuation and cauterization of left foot wound. He is resting comfortably, has mzzt-[id number]-[id number] pain, controlled with hydrocodone. He has been afebrile with good appetite. He has remained nonweightbearing since surgery. Plan to discharge today or tomorrow. LABORATORY DATA: WBC 6.9, RBC 2.87, hemoglobin 9.6, hematocrit 28.2, platelets 117, BUN 29, creatinine 1.4, glucose 137. PHYSICAL EXAMINATION: Incisions well approximated with no inflammation, erythema, drainage or bleeding. Immediate feliciano-incisional capillary refill with no signs of acute vascular embarrassment. No fluctuance or crepitation. No underlying palpable hematoma. The plantar wound at the region is roughly 5 x 5 mm with no active bleeding or expressible drainage. IMPRESSION: Status post hematoma evacuation with wound cauterization x 1 day. PLAN: The foot incision were cleansed and dressed with Aquacel Ag, ABD, Kerlix and Mirza bandage. The patient may discontinue per medicine and may place partial weight to the left foot to heal in a surgical shoe with a walker. He is on Augmentin 8[address] per Dr. Laws. I will follow up with him next week with Dr. Laws at [facility]. <ELECTRONICALLY SIGNED> By: Kody Worthington DPM 11/26/18 1316 1055 [id number] Worthington DPM /nt
--- NOTE | 2018-11-26 13:16 | OP ---
[address] [address] OPERATIVE REPORT Name: RICO JOSHUA Room: [address] IN M.R.#: [id number] Admission: 11/19/18 Attend Phys: Joann Stanley MD Discharge: 11/21/18 Date of : 50 Report #: [id number] THIS REPORT FOR: //name// CC: Shon Worthington FAM unknown Joann Stanley DATE OF SERVICE: 11/19/2018 SURGEON: Kody Worthington DPM PREOPERATIVE DIAGNOSIS: Hematoma, left foot, status post partial fifth ray resection x 3 weeks. ANESTHESIA: General LMA. INJECTABLES: 20 mL of a 1:1 mixture of 0.5% Marcaine plain and 1% lidocaine plain. ESTIMATED BLOOD LOSS: Roughly 5 mL. SUTURES: 3-0 nylon. SPECIMENS: None. COMPLICATIONS: None. HEMOSTASIS: Left ankle pneumatic tourniquet at 250 mmHg. DESCRIPTION OF PROCEDURE: The patient was brought to the OR and placed on the table supine with induction of general LMA anesthesia. A well-padded left ankle pneumatic tourniquet was placed. A local anesthetic block was given to the foot and extremity was prepped and draped aseptically after exsanguination and inflation of the tourniquet. The sutures were removed and blunt dissection carried down to the wound interior. Coagulated hematoma was evacuated and the wound was cauterized with electrocautery. It was flushed with antibiotic and dried. The tourniquet was sequentially released and all bleeders were identified and ligated with electrocautery. Once the wound was adequately cauterized, it was packed with Gelfoam and closed with 3-0 nylon in simple interrupted fashion. The plantar wound where the fifth MTP was gently packed with Aquacel Ag. The remaining wound was covered with Aquacel Ag, ABDs, Kerlix and Mirza bandage. The tourniquet was deflated with no active bleeding from the area. I would like to note, the tourniquet was actually deflated while the wound was opened and there was no active bleeding after appropriate cauterization. The tourniquet remained down at that point through [place] [id number] OPERATIVE REPORT Name: RICO JOSHUA Room: [address] IN [facility]#: [id number] Admission: 11/19/18 Attend Phys: Joann Stanley MD Discharge: 11/21/18 Date of : 50 Report #: [id number] application of the bandage. The patient left the OR alert and oriented with no pain or complications noted. <ELECTRONICALLY SIGNED> By: Kody Worthington DPM 11/26/18 1316 1059 [id number] Worthington DPM /nt
== END 2018-11-21 14:20 | disposition home or self-care (01) | DRG 908 ==
LOC: M.3W 10:34
PROVIDERS: Podiatrist Foot & Ankle Surgery; ADMIT Family Medicine
PROC: 05HY33Z Insertion of Infusion Device into Upper Vein, Percutaneous Approach (ICD-10-PCS; principal; 2018-11-19)
PROC: 0S5 Lower Joints, Destruction (ICD-10-PCS; 2018-11-19)
DX: M96.831 Postprocedural hemorrhage of a musculoskeletal structure following other procedure (principal); E44.1 Mild protein-calorie malnutrition; E11.22 Type 2 diabetes mellitus with diabetic chronic kidney disease; N18.3 Chronic kidney disease, stage 3 (moderate); I05.0 Rheumatic mitral stenosis; I12.9 Hypertensive chronic kidney disease with stage 1 through stage 4 chronic kidney disease, or unspecified chronic kidney disease; E78.5 Hyperlipidemia, unspecified; Z98.52 Vasectomy status; Z88.8 Allergy status to other drugs, medicaments and biological substances; Z79.82 Long term (current) use of aspirin; Z79.899 Other long term (current) drug therapy; Z68.36 Body mass index [BMI] 36.0-36.9, adult

== ENCOUNTER → 2018-11-26 | Outpatient (CLI) | payer MEDICARE, OTHER ==
[~2018-11-26] MED LIST changes: +AUGMENTIN 875-1 EACH PO; +LIPITOR 20 MG T20 M1 PO; +SENNA PLUS TAB1 EACH PO; +TRAMADOL 50 MG50 MG PO
--- NOTE | 2018-11-27 12:46 | CON ---
[address] [address] CONSULTATION Name: RICO JOSHUA Room: [place] Chaudhary#: [id number] Admission: 11/26/18 Attend Phys: Kody Worthington DPM Discharge: Date of : 50 Report #: [id number] THIS REPORT FOR: //name// CC: Kody LEAL DATE OF SERVICE: 11/26/2018 INFECTIOUS DISEASE CONSULTATION FOLLOWUP ATTENDING PHYSICIAN: Kody Worthington DPM. HISTORY OF PRESENT ILLNESS: The patient returns today in followup for deep foot infection. He is post amputation, great toe. He denies significant amount of pain and discomfort in general. He has had intermittent drainage from the drain site. Incision is well approximated with sutures at this point. He is post-procedure, I believe, roughly 3 weeks. He denies any systemic illness. He continues on therapy with Augmentin. He is scheduled to complete the prescribed course within the next 5-6 days. ASSESSMENT AND PLAN: Deep foot infection. We will continue as prescribed. He is instructed to complete the available prescription he has on hand, then discontinue. We will see him in followup in one week to see if we need to extend the treatment. Wound care per Dr. Worthington. He is to continue to offload. <ELECTRONICALLY SIGNED> By: Gera Laws MD 11/27/18 1246 0842 [id number] Laws MD /jeff
== END ==
LOC: M.WC 12:56
DX: T87.89 Other complications of amputation stump (principal); E11.42 Type 2 diabetes mellitus with diabetic polyneuropathy; M86.8X8 Other osteomyelitis, other site; I12.9 Hypertensive chronic kidney disease with stage 1 through stage 4 chronic kidney disease, or unspecified chronic kidney disease; N18.9 Chronic kidney disease, unspecified; K74.60 Unspecified cirrhosis of liver; Z79.4 Long term (current) use of insulin; Z79.82 Long term (current) use of aspirin; Y83.5 Amputation of limb(s) as the cause of abnormal reaction of the patient, or of later complication, without mention of misadventure at the time of the procedure

== ENCOUNTER → 2018-12-03 | Outpatient (CLI) | payer MEDICARE, OTHER ==
--- NOTE | ~2018-12-03 | CON ---
[address] [address] CONSULTATION Name: RICO JOSHUA Room: [place] Chaudhary#: [id number] Admission: 12/03/18 Attend Phys: Kody Worthington DPM Discharge: Date of : 50 Report #: [id number] THIS REPORT FOR: //name// CC: Kody LEAL DATE OF SERVICE: 12/05/2018 INFECTIOUS DISEASE CONSULTATION: HISTORY OF PRESENT ILLNESS: Follow up deep left foot infection post-amputation, undergoing wound care per Dr. Worthington. He has generally been doing well. He completed extended course of parenteral and then followed by enteral therapy course of last week, does have some degree of discomfort at the site, but although it is improved. Drainage is moderate. Denies any systemic illness, no fevers or chills. Deep foot infection. At this point, we will discontinue the antibiotics and observe. We will see him in followup as needed. He is to call if problems or concerns. Did discuss with Dr. Worthington, who is in agreement. Continue wound care as prescribed. By: [id number] [id number] Laws MD /nt
== END ==
LOC: M.WC 02:15
DX: T81.89XD Other complications of procedures, not elsewhere classified, subsequent encounter (principal); E11.69 Type 2 diabetes mellitus with other specified complication; M86.8X7 Other osteomyelitis, ankle and foot; E11.40 Type 2 diabetes mellitus with diabetic neuropathy, unspecified; E11.22 Type 2 diabetes mellitus with diabetic chronic kidney disease; I12.9 Hypertensive chronic kidney disease with stage 1 through stage 4 chronic kidney disease, or unspecified chronic kidney disease; N18.9 Chronic kidney disease, unspecified; L84 Corns and callosities; Y83.8 Other surgical procedures as the cause of abnormal reaction of the patient, or of later complication, without mention of misadventure at the time of the procedure

== ENCOUNTER → 2018-12-10 | Outpatient (CLI) | payer MEDICARE, OTHER | LOC: M.WC 04:35 | DX: T87.89 Other complications of amputation stump (principal); L84 Corns and callosities; E11.42 Type 2 diabetes mellitus with diabetic polyneuropathy; E11.69 Type 2 diabetes mellitus with other specified complication; M86.8X7 Other osteomyelitis, ankle and foot; E11.22 Type 2 diabetes mellitus with diabetic chronic kidney disease; I12.9 Hypertensive chronic kidney disease with stage 1 through stage 4 chronic kidney disease, or unspecified chronic kidney disease; N18.9 Chronic kidney disease, unspecified; K74.60 Unspecified cirrhosis of liver; Y83.5 Amputation of limb(s) as the cause of abnormal reaction of the patient, or of later complication, without mention of misadventure at the time of the procedure ==

== ENCOUNTER → 2018-12-17 | Outpatient (CLI) | payer MEDICARE, OTHER ==
--- NOTE | 2018-12-18 13:09 | CON ---
[address] [address] CONSULTATION Name: RICO JOSHUA Room: [place] Chaudhary#: [id number] Admission: 12/17/18 Attend Phys: Kody Worthington DPM Discharge: Date of : 50 Report #: [id number] THIS REPORT FOR: //name// CC: Kody LEAL DATE OF SERVICE: 12/17/2018 ATTENDING PHYSICIAN: Kody Worthington DPM REASON FOR EVALUATION: Followup osteomyelitis, status post 5th digit ray resection, foot. HISTORY OF PRESENT ILLNESS: The patient [facility]. He had completed prescribed course of combination of IV and oral antibiotics finishing roughly 2 weeks ago. He is here for followup, seen by Dr. Worthington. The incision is well approximated and actually the sutures were removed. There is minimal amount of surface inflammation noted. He does note some pain, a recurring pattern of some discomfort. He rates at 3/10. Still some drainage, particularly from the tract left over by the drain tube. He has not been systemically ill. Denies any fevers or chills. Appetite has been good. Blood sugars have been well controlled. ASSESSMENT: Deep foot infection. At this point, it is reasonable to extend any antibiotics. We will be available as needed. He is to follow up with Dr. Worthington on weekly basis as long as required. He will still have let me and the clinic know if he has increasing pain or other signs of surface inflammation about the foot. Likely would re-culture if indeed suggestive of ongoing infection and restart antibiotics. <ELECTRONICALLY SIGNED> By: Gera Laws MD 12/18/18 1309 10 [id number] Laws MD /nt
== END ==
LOC: M.WC 04:57
DX: T87.89 Other complications of amputation stump (principal); L84 Corns and callosities; E11.69 Type 2 diabetes mellitus with other specified complication; M86.8X7 Other osteomyelitis, ankle and foot; E11.42 Type 2 diabetes mellitus with diabetic polyneuropathy; E11.22 Type 2 diabetes mellitus with diabetic chronic kidney disease; I12.9 Hypertensive chronic kidney disease with stage 1 through stage 4 chronic kidney disease, or unspecified chronic kidney disease; N18.9 Chronic kidney disease, unspecified; K74.60 Unspecified cirrhosis of liver; Y83.5 Amputation of limb(s) as the cause of abnormal reaction of the patient, or of later complication, without mention of misadventure at the time of the procedure

== ENCOUNTER → 2018-12-24 | Outpatient (CLI) | payer MEDICARE, OTHER | LOC: M.WC 04:00 | DX: T87.89 Other complications of amputation stump (principal); L89.893 Pressure ulcer of other site, stage 3; L84 Corns and callosities; E11.42 Type 2 diabetes mellitus with diabetic polyneuropathy; E11.69 Type 2 diabetes mellitus with other specified complication; M86.8X8 Other osteomyelitis, other site; E11.22 Type 2 diabetes mellitus with diabetic chronic kidney disease; I12.9 Hypertensive chronic kidney disease with stage 1 through stage 4 chronic kidney disease, or unspecified chronic kidney disease; N18.9 Chronic kidney disease, unspecified; K74.60 Unspecified cirrhosis of liver; Y83.5 Amputation of limb(s) as the cause of abnormal reaction of the patient, or of later complication, without mention of misadventure at the time of the procedure ==

== ENCOUNTER → 2018-12-31 | Outpatient (CLI) | payer MEDICARE, OTHER | LOC: M.WC 05:19 | DX: T81.89XD Other complications of procedures, not elsewhere classified, subsequent encounter (principal); E11.42 Type 2 diabetes mellitus with diabetic polyneuropathy; E11.22 Type 2 diabetes mellitus with diabetic chronic kidney disease; I12.9 Hypertensive chronic kidney disease with stage 1 through stage 4 chronic kidney disease, or unspecified chronic kidney disease; N18.9 Chronic kidney disease, unspecified; E11.69 Type 2 diabetes mellitus with other specified complication; M86.8X8 Other osteomyelitis, other site; K74.60 Unspecified cirrhosis of liver; Z89.422 Acquired absence of other left toe(s); Y83.8 Other surgical procedures as the cause of abnormal reaction of the patient, or of later complication, without mention of misadventure at the time of the procedure ==

== ENCOUNTER → 2019-01-02 | Outpatient (CLI) | payer MEDICARE, OTHER | LOC: M.WC 05:05 | DX: T81.89XD Other complications of procedures, not elsewhere classified, subsequent encounter (principal); E11.42 Type 2 diabetes mellitus with diabetic polyneuropathy; E11.22 Type 2 diabetes mellitus with diabetic chronic kidney disease; I12.9 Hypertensive chronic kidney disease with stage 1 through stage 4 chronic kidney disease, or unspecified chronic kidney disease; N18.9 Chronic kidney disease, unspecified; E11.69 Type 2 diabetes mellitus with other specified complication; M86.8X8 Other osteomyelitis, other site; K74.60 Unspecified cirrhosis of liver; Y83.8 Other surgical procedures as the cause of abnormal reaction of the patient, or of later complication, without mention of misadventure at the time of the procedure ==

== ENCOUNTER → 2019-01-05 | Outpatient (CLI) | payer MEDICARE, OTHER | LOC: M.WC 01-04 00:43 | DX: T81.89XD Other complications of procedures, not elsewhere classified, subsequent encounter (principal); E11.42 Type 2 diabetes mellitus with diabetic polyneuropathy; E11.22 Type 2 diabetes mellitus with diabetic chronic kidney disease; Z89.422 Acquired absence of other left toe(s); I12.9 Hypertensive chronic kidney disease with stage 1 through stage 4 chronic kidney disease, or unspecified chronic kidney disease; N18.9 Chronic kidney disease, unspecified; E11.69 Type 2 diabetes mellitus with other specified complication; M86.8X8 Other osteomyelitis, other site; K74.60 Unspecified cirrhosis of liver; Y83.8 Other surgical procedures as the cause of abnormal reaction of the patient, or of later complication, without mention of misadventure at the time of the procedure ==

== ENCOUNTER → 2019-01-07 | Outpatient (CLI) | payer MEDICARE, OTHER | LOC: M.RAD 04:55 → M.WC 04:55 | DX: E11.621 Type 2 diabetes mellitus with foot ulcer (principal); L97.522 Non-pressure chronic ulcer of other part of left foot with fat layer exposed; E11.40 Type 2 diabetes mellitus with diabetic neuropathy, unspecified; E11.69 Type 2 diabetes mellitus with other specified complication; M86.8X8 Other osteomyelitis, other site; E11.22 Type 2 diabetes mellitus with diabetic chronic kidney disease; I12.9 Hypertensive chronic kidney disease with stage 1 through stage 4 chronic kidney disease, or unspecified chronic kidney disease; N18.9 Chronic kidney disease, unspecified; K74.60 Unspecified cirrhosis of liver ==

== ENCOUNTER → 2019-01-09 | Outpatient (CLI) | payer MEDICARE, OTHER | LOC: M.WC 05:01 | DX: E11.621 Type 2 diabetes mellitus with foot ulcer (principal); L97.521 Non-pressure chronic ulcer of other part of left foot limited to breakdown of skin; E11.69 Type 2 diabetes mellitus with other specified complication; M86.8X8 Other osteomyelitis, other site; E11.40 Type 2 diabetes mellitus with diabetic neuropathy, unspecified; E11.22 Type 2 diabetes mellitus with diabetic chronic kidney disease; I12.9 Hypertensive chronic kidney disease with stage 1 through stage 4 chronic kidney disease, or unspecified chronic kidney disease; N18.9 Chronic kidney disease, unspecified; K74.60 Unspecified cirrhosis of liver ==

== ENCOUNTER → 2019-01-12 | Outpatient (CLI) | payer MEDICARE, OTHER | LOC: M.WC 01:12 | DX: E11.621 Type 2 diabetes mellitus with foot ulcer (principal); L97.521 Non-pressure chronic ulcer of other part of left foot limited to breakdown of skin; E11.69 Type 2 diabetes mellitus with other specified complication; M86.8X8 Other osteomyelitis, other site; E11.40 Type 2 diabetes mellitus with diabetic neuropathy, unspecified; E11.22 Type 2 diabetes mellitus with diabetic chronic kidney disease; I12.9 Hypertensive chronic kidney disease with stage 1 through stage 4 chronic kidney disease, or unspecified chronic kidney disease; N18.9 Chronic kidney disease, unspecified; K74.60 Unspecified cirrhosis of liver ==

== ENCOUNTER → 2019-01-21 | Outpatient (CLI) | payer MEDICARE, OTHER | LOC: M.WC 08:30 | DX: E11.621 Type 2 diabetes mellitus with foot ulcer (principal); L97.526 Non-pressure chronic ulcer of other part of left foot with bone involvement without evidence of necrosis; E11.69 Type 2 diabetes mellitus with other specified complication; M86.8X8 Other osteomyelitis, other site; E11.40 Type 2 diabetes mellitus with diabetic neuropathy, unspecified; E11.22 Type 2 diabetes mellitus with diabetic chronic kidney disease; I12.9 Hypertensive chronic kidney disease with stage 1 through stage 4 chronic kidney disease, or unspecified chronic kidney disease; N18.9 Chronic kidney disease, unspecified; K74.60 Unspecified cirrhosis of liver ==

== ENCOUNTER → 2019-01-28 | Outpatient (CLI) | payer MEDICARE, OTHER | LOC: M.WC 04:37 | DX: E11.621 Type 2 diabetes mellitus with foot ulcer (principal); L97.526 Non-pressure chronic ulcer of other part of left foot with bone involvement without evidence of necrosis; E11.69 Type 2 diabetes mellitus with other specified complication; M86.8X8 Other osteomyelitis, other site; E11.40 Type 2 diabetes mellitus with diabetic neuropathy, unspecified; E11.22 Type 2 diabetes mellitus with diabetic chronic kidney disease; I12.9 Hypertensive chronic kidney disease with stage 1 through stage 4 chronic kidney disease, or unspecified chronic kidney disease; N18.9 Chronic kidney disease, unspecified; K74.60 Unspecified cirrhosis of liver ==

== ENCOUNTER → 2019-02-04 | Outpatient (CLI) | payer MEDICARE, OTHER | LOC: M.WC 05:28 | DX: E11.621 Type 2 diabetes mellitus with foot ulcer (principal); L97.526 Non-pressure chronic ulcer of other part of left foot with bone involvement without evidence of necrosis; E11.69 Type 2 diabetes mellitus with other specified complication; M86.8X8 Other osteomyelitis, other site; E11.40 Type 2 diabetes mellitus with diabetic neuropathy, unspecified; E11.22 Type 2 diabetes mellitus with diabetic chronic kidney disease; I12.9 Hypertensive chronic kidney disease with stage 1 through stage 4 chronic kidney disease, or unspecified chronic kidney disease; N18.9 Chronic kidney disease, unspecified; K74.60 Unspecified cirrhosis of liver ==

== ENCOUNTER → 2019-02-11 | Outpatient (CLI) | payer MEDICARE, OTHER | LOC: M.WC 04:52 | DX: E11.621 Type 2 diabetes mellitus with foot ulcer (principal); L97.526 Non-pressure chronic ulcer of other part of left foot with bone involvement without evidence of necrosis; E11.69 Type 2 diabetes mellitus with other specified complication; M86.8X8 Other osteomyelitis, other site; E11.40 Type 2 diabetes mellitus with diabetic neuropathy, unspecified; E11.22 Type 2 diabetes mellitus with diabetic chronic kidney disease; N18.9 Chronic kidney disease, unspecified; I12.9 Hypertensive chronic kidney disease with stage 1 through stage 4 chronic kidney disease, or unspecified chronic kidney disease; K74.60 Unspecified cirrhosis of liver ==

== ENCOUNTER → 2019-02-18 | Outpatient (CLI) | payer MEDICARE, OTHER | LOC: M.WC 01-15 07:00 | DX: E11.621 Type 2 diabetes mellitus with foot ulcer (principal); L97.526 Non-pressure chronic ulcer of other part of left foot with bone involvement without evidence of necrosis; E11.40 Type 2 diabetes mellitus with diabetic neuropathy, unspecified; E11.22 Type 2 diabetes mellitus with diabetic chronic kidney disease; I12.9 Hypertensive chronic kidney disease with stage 1 through stage 4 chronic kidney disease, or unspecified chronic kidney disease; N18.9 Chronic kidney disease, unspecified; E11.69 Type 2 diabetes mellitus with other specified complication; M86.8X8 Other osteomyelitis, other site; K74.60 Unspecified cirrhosis of liver ==

== ENCOUNTER → 2019-02-25 | Outpatient (CLI) | payer MEDICARE, OTHER | LOC: M.WC 05:37 | DX: E11.621 Type 2 diabetes mellitus with foot ulcer (principal); L97.526 Non-pressure chronic ulcer of other part of left foot with bone involvement without evidence of necrosis; E11.42 Type 2 diabetes mellitus with diabetic polyneuropathy; E11.22 Type 2 diabetes mellitus with diabetic chronic kidney disease; I12.9 Hypertensive chronic kidney disease with stage 1 through stage 4 chronic kidney disease, or unspecified chronic kidney disease; N18.9 Chronic kidney disease, unspecified; E11.69 Type 2 diabetes mellitus with other specified complication; M86.8X8 Other osteomyelitis, other site; K74.60 Unspecified cirrhosis of liver ==

== ENCOUNTER → 2019-03-05 | Outpatient (CLI) | payer MEDICARE, OTHER | LOC: M.WC 11:00 | DX: E11.621 Type 2 diabetes mellitus with foot ulcer (principal); L97.526 Non-pressure chronic ulcer of other part of left foot with bone involvement without evidence of necrosis; E11.40 Type 2 diabetes mellitus with diabetic neuropathy, unspecified; E11.22 Type 2 diabetes mellitus with diabetic chronic kidney disease; I12.9 Hypertensive chronic kidney disease with stage 1 through stage 4 chronic kidney disease, or unspecified chronic kidney disease; N18.9 Chronic kidney disease, unspecified; E11.69 Type 2 diabetes mellitus with other specified complication; M86.8X7 Other osteomyelitis, ankle and foot ==

== ENCOUNTER → 2019-03-11 | Outpatient (CLI) | payer MEDICARE, OTHER ==
[2019-03-11 10:12] LABS: CALCIUM 9.3 mg/dL (8.5-10.1); CREATININE 1.7 mg/dL (0.6-1.3); POTASSIUM 4.5 mmol/L (3.5-5.1)
== END ==
LOC: M.WC 08:03
PROVIDERS: Family Medicine
DX: E11.621 Type 2 diabetes mellitus with foot ulcer (principal); L97.526 Non-pressure chronic ulcer of other part of left foot with bone involvement without evidence of necrosis; E11.40 Type 2 diabetes mellitus with diabetic neuropathy, unspecified; E11.22 Type 2 diabetes mellitus with diabetic chronic kidney disease; I12.9 Hypertensive chronic kidney disease with stage 1 through stage 4 chronic kidney disease, or unspecified chronic kidney disease; N18.9 Chronic kidney disease, unspecified; E11.69 Type 2 diabetes mellitus with other specified complication; M86.8X8 Other osteomyelitis, other site; K74.60 Unspecified cirrhosis of liver

== ENCOUNTER → 2019-03-13 | Outpatient (CLI) | payer MEDICARE, OTHER | LOC: M.MRI 08:25 | DX: T81.89XD Other complications of procedures, not elsewhere classified, subsequent encounter (principal); E11.22 Type 2 diabetes mellitus with diabetic chronic kidney disease; I12.9 Hypertensive chronic kidney disease with stage 1 through stage 4 chronic kidney disease, or unspecified chronic kidney disease; N18.3 Chronic kidney disease, stage 3 (moderate); Z98.890 Other specified postprocedural states; Y65.8 Other specified misadventures during surgical and medical care ==

== ENCOUNTER → 2019-03-18 | Outpatient (CLI) | payer MEDICARE, OTHER | LOC: M.WC 05:04 | DX: E11.621 Type 2 diabetes mellitus with foot ulcer (principal); L97.526 Non-pressure chronic ulcer of other part of left foot with bone involvement without evidence of necrosis; E11.40 Type 2 diabetes mellitus with diabetic neuropathy, unspecified; E11.22 Type 2 diabetes mellitus with diabetic chronic kidney disease; I12.9 Hypertensive chronic kidney disease with stage 1 through stage 4 chronic kidney disease, or unspecified chronic kidney disease; N18.9 Chronic kidney disease, unspecified; E11.69 Type 2 diabetes mellitus with other specified complication; M86.8X8 Other osteomyelitis, other site; K74.60 Unspecified cirrhosis of liver ==

== ENCOUNTER → 2019-03-25 | Outpatient (CLI) | payer MEDICARE, OTHER | LOC: M.WC 05:00 | DX: E11.621 Type 2 diabetes mellitus with foot ulcer (principal); L97.528 Non-pressure chronic ulcer of other part of left foot with other specified severity; E11.40 Type 2 diabetes mellitus with diabetic neuropathy, unspecified; E11.69 Type 2 diabetes mellitus with other specified complication; M86.8X8 Other osteomyelitis, other site; E11.22 Type 2 diabetes mellitus with diabetic chronic kidney disease; I12.9 Hypertensive chronic kidney disease with stage 1 through stage 4 chronic kidney disease, or unspecified chronic kidney disease; N18.9 Chronic kidney disease, unspecified; K74.60 Unspecified cirrhosis of liver ==